=== PATIENT | male | born 1955 | race African-American/Black ===

== ENCOUNTER 2017-12-03 04:20 | Inpatient (IN) | payer OTHER ==
[2017-12-03] MEDS: IPRATROPIUM (NEB) 0.5 MG/2.5 ML AMP INH (05:07)
[2017-12-03] MEDS: ALBUTEROL 0.5% (NEB) 2.5 MG/0.5 ML AMP INH (05:07)
[2017-12-03 05:13] LABS: ADD MAN DIFF? NO; BASOPHILS % 0.2 % (0.0-2.0); EOSINOPHILS # 0.2 10^3/ul (0.0-0.5); EOSINOPHILS % 4.9 % (0.0-7.0); HEMATOCRIT 42.8 % (42.0-52.0); HEMOGLOBIN 14.1 g/dl (14.0-18.0); LYMPHOCYTES # 1.6 10^3/ul (0.8-2.9); LYMPHOCYTES % 32.5 % (15.0-51.0); MEAN CORPUSCULAR HGB CONC 32.9 g/dl (32.0-37.0); MEAN CORPUSCULAR VOLUME 87.9 fl (82.0-101.0); MEAN PLATELET VOLUME 10.6 fl (7.4-10.4); MONOCYTE # 0.7 10^3/ul (0.3-0.9); MONOCYTES % 13.4 % (0.0-11.0); NEUTROPHIL # 2.4 10^3/ul (1.6-7.5); NEUTROPHILS % 48.6 % (39.0-77.0); PLATELET COUNT 210 10^3/UL (140-415); RED BLOOD COUNT 4.87 10^6/ul (4.70-6.10)
[2017-12-03 05:13] LABS: WHITE BLOOD COUNT 4.9 10^3/ul (4.8-10.8)
[2017-12-03] MEDS: METHYLPREDNISOLONE 125 MG INJ IV (05:39)
[2017-12-03] MEDS: MAGNESIUM SULFATE 2 GM/50 ML 50 ML IVPB (05:39)
[2017-12-03 05:40] LABS: ANION GAP 15 (8-16); BLOOD UREA NITROGEN 25 mg/dl (7-20); CALCIUM 8.9 mg/dl (8.4-10.2); CARBON DIOXIDE 27 mmol/L (21-31); CHLORIDE 100 mmol/L (97-110); CREATININE 2.42 mg/dl (0.61-1.24); GLUCOSE 249 mg/dl (70-220); POTASSIUM 3.2 mmol/L (3.5-5.1); SODIUM 139 mmol/L (135-144)
[2017-12-03 05:45] LABS: LACTIC ACID 2.7 mmol/L (0.5-2.0)
[2017-12-03 05:52] LABS: B-TYPE NATRIURETIC PEPTIDE 562 PG/ML (0-125); TROPONIN-I 0.121 ng/ml (0.00-0.12)
[2017-12-03] MEDS: SOD CHLORIDE 0.9% 500 ML IV (05:56)
[2017-12-03] MEDS ORDERED: ONDANSETRON 4 MG INJ IV ×2 (06:00→11:00)
[2017-12-03] MEDS ORDERED: ACETAMINOPHEN 325 MG TAB PO ×2 (06:00→11:00)
[2017-12-03 06:10] LABS: AADO2 Arterial 496.8 mmHg (7.0-24.0); Allen Test ACCEPTAB; Arterial Base Excess 2.5 mmol/L (-3.0-3); Arterial Blood Gas Oxygen Sat 96.7 mmHG (95.0-98.0); Arterial COHb 2.9 % (0.0-3.0); Arterial Fraction of Oxyhgb 93.7 % (93.0-99.0); Arterial HCO3 29.7 mmol/L (22.0-26.0); Arterial MetHb 0.2 % (0.0-1.5); Arterial Total Hemglobin 14.8 g/dl (12.0-18.0); Arterial pCO2 56.6 mmhg (35-45); Blood Gas IEPAP 15/5; Blood Gas PS 10; MODE MASK - BIPAP; Site Right Radial
[2017-12-03] MEDS: AZITHROMYCIN 500MG/NS (PMX) 250 ML IVPB (06:52)
[2017-12-03] MEDS: ASPIRIN 81 MG TAB PO (06:52)
[2017-12-03] MEDS ORDERED: METOPROLOL 5 MG INJ (10:23)
[2017-12-03] MEDS ORDERED: ASPIRIN (EC) 81 MG TAB PO (10:30)
[2017-12-03 10:47] LABS: HEMOGLOBIN A1C 6.4 % (0-5.9)
[2017-12-03] MEDS: METOPROLOL 5 MG INJ IV ×2 (10:50→12:20)
[2017-12-03] MEDS ORDERED: NITROGLYCERIN (SL) 0.4 MG TAB SL (11:00)
[2017-12-03] MEDS ORDERED: HYDROCODONE/APAP (5/325) TAB PO (11:00)
[2017-12-03] MEDS ORDERED: GLUCAGON 1 MG INJ IM (11:00)
[2017-12-03] MEDS ORDERED: NACL 0.9% 3 ML SYG IV (11:00)
[2017-12-03] MEDS ORDERED: GLUCOSE GEL 15 GRAM TUBE BUCCAL (11:00)
[2017-12-03] MEDS ORDERED: DEXTROSE 50% 50 ML SYRINGE IV ×2 (11:00)
[2017-12-03] MEDS ORDERED: GLUCOSE GEL 15 GRAM TUBE PO ×2 (11:00)
[2017-12-03 11:20] LABS: FREE T4 (FREE THYROXINE) 0.92 ng/dl (0.64-1.79)
[2017-12-03] MEDS: POTASSIUM CHLORIDE (SR) 20 MEQ TAB PO (11:41)
[2017-12-03] MEDS: INSULIN ASPART [NOVOLOG] 3 ML PEN SC ×5 (12:31→20:32)
[2017-12-03] MEDS: AMLODIPINE 10 MG TAB PO (12:38)
[2017-12-03 12:40] LABS: CREATINE KINASE 107 IU/L (23-200)
[2017-12-03 12:51] LABS: CK INDEX 1.8; TROPONIN-I 0.083 ng/ml (0.00-0.12)
[2017-12-03 12:52] LABS: CK-MB 1.88 ng/ml (0.0-2.4)
[2017-12-03] MEDS ORDERED: MAGNESIUM SULFATE 3 GM in DEXTROSE 5% 100 ML IVPB (13:00)
[2017-12-03 13:09] LABS: LACTIC ACID 3.7 mmol/L (0.5-2.0)
[2017-12-03] MEDS: LEVALBUTEROL (NEB) 0.63 MG/3 ML AMP HHN ×2 (13:51→20:18)
[2017-12-03] MEDS: HEPARIN 5,000 UNIT/0.5 ML VIAL SC ×2 (14:00→22:08)
[2017-12-03 14:56] LABS: ANION GAP 16 (8-16); BLOOD UREA NITROGEN 21 mg/dl (7-20); CALCIUM 8.6 mg/dl (8.4-10.2); CARBON DIOXIDE 28 mmol/L (21-31); CHLORIDE 101 mmol/L (97-110); CREATININE 1.73 mg/dl (0.61-1.24); GLUCOSE 243 mg/dl (70-220); POTASSIUM 3.8 mmol/L (3.5-5.1); SODIUM 141 mmol/L (135-144)
[2017-12-03 15:13] LABS: LACTIC ACID 2.4 mmol/L (0.5-2.0)
[2017-12-03 15:36] LABS: BARBITURATES Negative (NEGATIVE)
[2017-12-03 15:39] LABS: AMPHETAMINE/METHAMPHETAMINE Negative (NEGATIVE); BENZODIAZEPINES Negative (NEGATIVE); CANNABINOIDS Negative (NEGATIVE); COCAINE Positive (NEGATIVE); OPIATES Negative (NEGATIVE)
[2017-12-03] MEDS: AMIODARONE 150MG/D5W BOLUS 100 ML IV (16:27)
[2017-12-03 16:33] LABS: SODIUM,URINE RANDOM 39 mmol/L (30-90)
[2017-12-03 16:35] LABS: CREATININE,URINE RANDOM 119.52 mg/dl (20-370)
[2017-12-03] MEDS: AMIODARONE 900 MG in DEXTROSE 5% 482 ML IV ×2 (16:35→22:11)
[2017-12-03 16:47] LABS: PROTEIN/CREAT RATIO 2.16 RATIO
[2017-12-03 19:45] LABS: CREATINE KINASE 104 IU/L (23-200)
[2017-12-03 19:58] LABS: CK INDEX 2.3; TROPONIN-I 0.081 ng/ml (0.00-0.12)
[2017-12-03 19:59] LABS: CK-MB 2.43 ng/ml (0.0-2.4)
[2017-12-03] MEDS ORDERED: hydrALAzine 20 MG INJ (20:21)
[2017-12-03] MEDS: hydrALAzine 20 MG INJ IV (20:29)
[2017-12-03] MEDS: ATORVASTATIN 40 MG TAB PO (20:30)
[2017-12-04] MEDS: ACCU-CHEK XX (01:28)
[2017-12-04] MEDS: LEVALBUTEROL (NEB) 0.63 MG/3 ML AMP HHN ×4 (01:29→19:41)
[2017-12-04] MEDS: hydrALAzine 20 MG INJ IV ×2 (04:53→19:45)
[2017-12-04] MEDS: HEPARIN 5,000 UNIT/0.5 ML VIAL SC ×3 (05:08→21:12)
[2017-12-04 06:49] LABS: ADD MAN DIFF? NO
[2017-12-04 06:53] LABS: BASOPHILS % 0.3 % (0.0-2.0); EOSINOPHILS # 0.2 10^3/ul (0.0-0.5); EOSINOPHILS % 2.2 % (0.0-7.0); HEMATOCRIT 42.3 % (42.0-52.0); HEMOGLOBIN 14.2 g/dl (14.0-18.0); LYMPHOCYTES % 29.8 % (15.0-51.0); MEAN CORPUSCULAR HEMOGLOBIN 29.5 pg (29.0-33.0); MEAN CORPUSCULAR HGB CONC 33.6 g/dl (32.0-37.0); MEAN CORPUSCULAR VOLUME 87.8 fl (82.0-101.0); MEAN PLATELET VOLUME 10.1 fl (7.4-10.4); MONOCYTE # 0.8 10^3/ul (0.3-0.9); MONOCYTES % 12.3 % (0.0-11.0); NEUTROPHIL # 3.7 10^3/ul (1.6-7.5); NEUTROPHILS % 54.8 % (39.0-77.0); PLATELET COUNT 197 10^3/UL (140-415); RED BLOOD COUNT 4.82 10^6/ul (4.70-6.10); RED CELL DISTRIBUTION WIDTH 13.9 % (11.5-14.5)
[2017-12-04 06:53] LABS: WHITE BLOOD COUNT 6.8 10^3/ul (4.8-10.8)
[2017-12-04 07:21] LABS: ALANINE AMINOTRANSFERASE 28 IU/L (13-69); ALBUMIN 3.8 g/dl (3.3-4.9); ALKALINE PHOSPHATASE 105 IU/L (42-121); ANION GAP 13 (8-16); ASPARTATE AMINO TRANSFERASE 27 IU/L (15-46); BLOOD UREA NITROGEN 16 mg/dl (7-20); CARBON DIOXIDE 28 mmol/L (21-31); CHLORIDE 103 mmol/L (97-110); CREATININE 1.19 mg/dl (0.61-1.24); GLUCOSE 130 mg/dl (70-220); POTASSIUM 3.8 mmol/L (3.5-5.1); SODIUM 140 mmol/L (135-144); TOTAL PROTEIN 7.6 g/dl (6.1-8.1)
[2017-12-04 07:23] LABS: MAGNESIUM 1.7 mg/dl (1.7-2.5)
[2017-12-04 07:23] LABS: PHOSPHORUS 2.5 mg/dl (2.5-4.9)
[2017-12-04 07:31] LABS: INR 0.88; PT RATIO 0.9
[2017-12-04 07:32] LABS: PARTIAL THROMBOPLASTIN TIME 27.5 Sec (25.0-35.0)
[2017-12-04] MEDS: INSULIN GLARGINE [LANtus] 3 ML PEN SC (09:00)
[2017-12-04] MEDS: INSULIN ASPART [NOVOLOG] 3 ML PEN SC ×7 (09:00→21:15)
[2017-12-04] MEDS: AMLODIPINE 10 MG TAB PO (09:09)
[2017-12-04] MEDS: ASPIRIN 81 MG TAB PO (09:09)
[2017-12-04 09:57] LABS: CREATINE KINASE 110 IU/L (23-200)
[2017-12-04 09:57] LABS: URIC ACID 6.1 mg/dl (3.1-7.9)
[2017-12-04] MEDS ORDERED: ZOLPIDEM 5 MG TAB PO (11:00)
[2017-12-04] MEDS: METHYLPREDNISOLONE 40 MG INJ IV ×2 (13:09→21:07)
[2017-12-04] MEDS: ATORVASTATIN 40 MG TAB PO (21:06)
[2017-12-05] MEDS: hydrALAzine 20 MG INJ IV ×3 (00:17→16:23)
[2017-12-05] MEDS: LEVALBUTEROL (NEB) 0.63 MG/3 ML AMP HHN ×4 (00:59→19:38)
[2017-12-05] MEDS: ACCU-CHEK XX (02:00)
[2017-12-05] MEDS: METHYLPREDNISOLONE 40 MG INJ IV ×3 (06:16→21:14)
[2017-12-05] MEDS: HEPARIN 5,000 UNIT/0.5 ML VIAL SC ×3 (06:18→21:13)
[2017-12-05] MEDS: INSULIN ASPART [NOVOLOG] 3 ML PEN SC ×7 (08:09→21:00)
[2017-12-05] MEDS: ASPIRIN 81 MG TAB PO (09:08)
[2017-12-05] MEDS: AMLODIPINE 10 MG TAB PO (09:08)
[2017-12-05] MEDS: INSULIN GLARGINE [LANtus] 3 ML PEN SC (10:03)
[2017-12-05 10:32] LABS: CREATINE KINASE 59 IU/L (23-200)
[2017-12-05 10:34] LABS: ALANINE AMINOTRANSFERASE 26 IU/L (13-69); ALBUMIN 3.7 g/dl (3.3-4.9); ALBUMIN/GLOBULIN RATIO 1.05; ALKALINE PHOSPHATASE 100 IU/L (42-121); ANION GAP 14 (8-16); ASPARTATE AMINO TRANSFERASE 23 IU/L (15-46); BLOOD UREA NITROGEN 20 mg/dl (7-20); CALCIUM 9.6 mg/dl (8.4-10.2); CARBON DIOXIDE 29 mmol/L (21-31); CHLORIDE 101 mmol/L (97-110); CREATININE 1.33 mg/dl (0.61-1.24); GLUCOSE 199 mg/dl (70-220); MAGNESIUM 1.7 mg/dl (1.7-2.5); POTASSIUM 4.4 mmol/L (3.5-5.1); SODIUM 140 mmol/L (135-144); TOTAL PROTEIN 7.2 g/dl (6.1-8.1)
[2017-12-05 10:41] LABS: B-TYPE NATRIURETIC PEPTIDE 679 PG/ML (0-125)
[2017-12-05 10:44] LABS: CK INDEX 4.2; CK-MB 2.48 ng/ml (0.0-2.4); TROPONIN-I 0.085 ng/ml (0.00-0.12)
[2017-12-05] MEDS ORDERED: LORAZEPAM 2 MG INJ IV (17:00)
[2017-12-05] MEDS: ATORVASTATIN 40 MG TAB PO (21:05)
[2017-12-05] MEDS: NIFEdipine (XL) 30 MG TAB PO (21:05)
[2017-12-06] MEDS: ACCU-CHEK XX (02:00)
[2017-12-06] MEDS: METHYLPREDNISOLONE 40 MG INJ IV (06:47)
[2017-12-06] MEDS: HEPARIN 5,000 UNIT/0.5 ML VIAL SC (07:00)
[2017-12-06] MEDS: INSULIN ASPART [NOVOLOG] 3 ML PEN SC ×2 (07:55)
[2017-12-06] MEDS: LEVALBUTEROL (NEB) 0.63 MG/3 ML AMP HHN (08:00)
[2017-12-06] MEDS: INSULIN GLARGINE [LANtus] 3 ML PEN SC (08:00)
[2017-12-06] MEDS: NIFEdipine (XL) 30 MG TAB PO (08:31)
[2017-12-06] MEDS: ASPIRIN 81 MG TAB PO (08:31)
== END 2017-12-06 08:48 | disposition left against medical advice (07) | DRG 280 ==
LOC: E/R 04:20 → TEL 12-05 17:40 → MS3 05:46 → TEL 12-04 23:15
PROC: 5A09457 Assistance with Respiratory Ventilation, 24-96 Consecutive Hours, Continuous Positive Airway Pressure (ICD-10-PCS; principal; 2017-12-03)
PROC: 4A033R1 Measurement of Arterial Saturation, Peripheral, Percutaneous Approach (ICD-10-PCS; 2017-12-03)
DX: I21.4 Non-ST elevation (NSTEMI) myocardial infarction (principal); I50.23 Acute on chronic systolic (congestive) heart failure; J96.02 Acute respiratory failure with hypercapnia; J96.01 Acute respiratory failure with hypoxia; E87.2 Acidosis; N17.9 Acute kidney failure, unspecified; J44.1 Chronic obstructive pulmonary disease with (acute) exacerbation; I42.9 Cardiomyopathy, unspecified; I47.1 Supraventricular tachycardia; I13.0 Hypertensive heart and chronic kidney disease with heart failure and stage 1 through stage 4 chronic kidney disease, or unspecified chronic kidney disease; F15.90 Other stimulant use, unspecified, uncomplicated; E66.9 Obesity, unspecified; Z68.32 Body mass index [BMI] 32.0-32.9, adult; R73.03 Prediabetes; F17.210 Nicotine dependence, cigarettes, uncomplicated; E78.5 Hyperlipidemia, unspecified; G47.33 Obstructive sleep apnea (adult) (pediatric); N18.9 Chronic kidney disease, unspecified; F14.10 Cocaine abuse, uncomplicated; Z91.19 Patient's noncompliance with other medical treatment and regimen; Z79.82 Long term (current) use of aspirin
CPT/HCPCS: 36600; 71045; 76775; 80048; 80053; 80307; 81003; 82550; 82553; 82570; 82803; 82962; 83036; 83605; 83735; 83880; 84100; 84300; 84439; 84443; 84484; 84560; 85025; 85610; 85730; 87040; 89190; 93005; 93306; 94640; 94644; 94660; 94664; 96374; 96375; 99285-25

== ENCOUNTER 2018-03-28 03:28 | Inpatient (IN) | payer OTHER ==
[2018-03-28 04:17] LABS: ADD MAN DIFF? NO
[2018-03-28 04:22] LABS: WHITE BLOOD COUNT 7.3 10^3/ul (4.8-10.8)
[2018-03-28 04:22] LABS: BASOPHILS % 0.1 % (0.0-2.0); EOSINOPHILS # 0.3 10^3/ul (0.0-0.5); EOSINOPHILS % 3.6 % (0.0-7.0); HEMATOCRIT 41.5 % (42.0-52.0); HEMOGLOBIN 13.4 g/dl (14.0-18.0); LYMPHOCYTES # 1.5 10^3/ul (0.8-2.9); LYMPHOCYTES % 20.1 % (15.0-51.0); MEAN CORPUSCULAR HGB CONC 32.3 g/dl (32.0-37.0); MEAN CORPUSCULAR VOLUME 92.8 fl (82.0-101.0); MEAN PLATELET VOLUME 10.3 fl (7.4-10.4); MONOCYTE # 0.9 10^3/ul (0.3-0.9); MONOCYTES % 12.5 % (0.0-11.0); NEUTROPHIL # 4.6 10^3/ul (1.6-7.5); NEUTROPHILS % 63.2 % (39.0-77.0); PLATELET COUNT 219 10^3/UL (140-415); RED BLOOD COUNT 4.47 10^6/ul (4.70-6.10); RED CELL DISTRIBUTION WIDTH 14.1 % (11.5-14.5)
[2018-03-28 04:36] LABS: ALANINE AMINOTRANSFERASE 23 IU/L (13-69); ALBUMIN 3.5 g/dl (3.3-4.9); ALBUMIN/GLOBULIN RATIO 0.97; ALKALINE PHOSPHATASE 94 IU/L (42-121); ANION GAP 12 (8-16); ASPARTATE AMINO TRANSFERASE 20 IU/L (15-46); BILIRUBIN,INDIRECT 0.5 mg/dl (0-1.1); BILIRUBIN,TOTAL 0.5 mg/dl (0.2-1.3); BLOOD UREA NITROGEN 16 mg/dl (7-20); CALCIUM 8.9 mg/dl (8.4-10.2); CARBON DIOXIDE 30 mmol/L (21-31); CHLORIDE 105 mmol/L (97-110); CREATININE 1.47 mg/dl (0.61-1.24); GLUCOSE 112 mg/dl (70-220); POTASSIUM 3.9 mmol/L (3.5-5.1); SODIUM 143 mmol/L (135-144); TOTAL PROTEIN 7.1 g/dl (6.1-8.1)
[2018-03-28 04:39] LABS: INR 0.93; PROTIME 12.5 Sec (11.9-14.9)
[2018-03-28 04:47] LABS: B-TYPE NATRIURETIC PEPTIDE 2110 PG/ML (0-125)
[2018-03-28 04:52] LABS: TROPONIN-I 0.142 ng/ml (0.00-0.12)
[2018-03-28] MEDS: FUROSEMIDE 40 MG INJ IV (05:00)
[2018-03-28] MEDS ORDERED: NACL 0.9% 3 ML SYG IV (05:30)
[2018-03-28] MEDS ORDERED: ONDANSETRON 4 MG INJ IV (05:30)
[2018-03-28] MEDS ORDERED: ACETAMINOPHEN 325 MG TAB PO (05:30)
[2018-03-28] MEDS ORDERED: morphine 2 MG INJ IV (05:30)
[2018-03-28] MEDS ORDERED: ALBUTEROL/IPRATROPIUM (NEB) 3 ML AMP HHN (05:30)
[2018-03-28] MEDS: AMLODIPINE 10 MG TAB PO (09:00)
[2018-03-28] MEDS: ASPIRIN (EC) 81 MG TAB PO (09:00)
[2018-03-28] MEDS: FUROSEMIDE 20 MG INJ IV ×2 (09:00→18:44)
[2018-03-28] MEDS: HEPARIN 5,000 UNIT/0.5 ML VIAL SC ×2 (09:00→20:31)
[2018-03-28] MEDS ORDERED: FUROSEMIDE 40 MG TAB PO (09:00)
[2018-03-28 09:43] LABS: CREATINE KINASE 89 IU/L (23-200)
[2018-03-28 09:55] LABS: CK INDEX 3.4; TROPONIN-I 0.127 ng/ml (0.00-0.12)
[2018-03-28 12:18] LABS: AADO2 Arterial 53.8 mmHg (7.0-24.0); Allen Test ACCEPTAB; Arterial Base Excess 0.8 mmol/L (-3.0-3); Arterial Blood Gas Oxygen Sat 97.1 mmHG (95.0-98.0); Arterial COHb 3.8 % (0.0-3.0); Arterial Fraction of Oxyhgb 93.1 % (93.0-99.0); Arterial HCO3 27.1 mmol/L (22.0-26.0); Arterial MetHb 0.3 % (0.0-1.5); Arterial Total Hemglobin 14.8 g/dl (12.0-18.0); Arterial pCO2 49.6 mmhg (35-45); Blood Gas IEPAP 15/5; MODE MASK - BIPAP; Site Left Radial
[2018-03-28 12:51] LABS: CREATINE KINASE 84 IU/L (23-200)
[2018-03-28 13:01] LABS: CK INDEX 3.2
[2018-03-28] MEDS: ALBUTEROL/IPRATROPIUM (NEB) 3 ML AMP HHN ×2 (14:30→20:10)
[2018-03-28] MEDS: LEVOFLOXACIN 250MG/D5W (PMX) 50 ML IVPB (17:00)
[2018-03-28] MEDS: hydrALAzine 20 MG INJ IV (20:23)
[2018-03-28] MEDS: ATORVASTATIN 40 MG TAB PO (20:23)
[2018-03-29 01:16] LABS: ADD UMIC YES; UR ASCORBIC ACID NEGATIVE (NEGATIVE); UR BILIRUBIN (Dip) NEGATIVE (NEGATIVE); UR BLOOD (Dip) NEGATIVE (NEGATIVE); UR CLARITY CLEAR (CLEAR); UR COLOR YELLOW (YELLOW); UR GLUCOSE (Dip) NEGATIVE (NEGATIVE); UR KETONES (Dip) NEGATIVE (NEGATIVE); UR LEUKOCYTE ESTERASE (Dip) NEGATIVE Leu/ul (NEGATIVE); UR NITRITE (Dip) NEGATIVE (NEGATIVE); UR RBC 0 /HPF (0-5); UR TOTAL PROTEIN (Dip) 3+ mg/dl (NEGATIVE); UR UROBILINOGEN (Dip) 2+ mg/dL (NEGATIVE); UR WBC 1 /HPF (0-5)
[2018-03-29] MEDS: hydrALAzine 20 MG INJ IV (01:18)
[2018-03-29] MEDS: ALBUTEROL/IPRATROPIUM (NEB) 3 ML AMP HHN ×4 (01:32→20:15)
[2018-03-29 03:01] LABS: SODIUM,URINE RANDOM 142 mmol/L (30-90)
[2018-03-29] MEDS: FUROSEMIDE 20 MG INJ IV (05:59)
[2018-03-29 08:19] LABS: ADD MAN DIFF? NO
[2018-03-29 08:20] LABS: BASOPHILS % 0.4 % (0.0-2.0); EOSINOPHILS # 0.2 10^3/ul (0.0-0.5); EOSINOPHILS % 3.7 % (0.0-7.0); HEMATOCRIT 48.2 % (42.0-52.0); HEMOGLOBIN 15.5 g/dl (14.0-18.0); LYMPHOCYTES # 1.2 10^3/ul (0.8-2.9); LYMPHOCYTES % 22.7 % (15.0-51.0); MEAN CORPUSCULAR HEMOGLOBIN 29.5 pg (29.0-33.0); MEAN CORPUSCULAR HGB CONC 32.2 g/dl (32.0-37.0); MEAN CORPUSCULAR VOLUME 91.8 fl (82.0-101.0); MEAN PLATELET VOLUME 10.4 fl (7.4-10.4); MONOCYTE # 0.7 10^3/ul (0.3-0.9); MONOCYTES % 13.2 % (0.0-11.0); NEUTROPHILS % 59.6 % (39.0-77.0); PLATELET COUNT 278 10^3/UL (140-415); RED BLOOD COUNT 5.25 10^6/ul (4.70-6.10); RED CELL DISTRIBUTION WIDTH 14.1 % (11.5-14.5)
[2018-03-29 08:20] LABS: WHITE BLOOD COUNT 5.1 10^3/ul (4.8-10.8)
[2018-03-29 08:48] LABS: ALANINE AMINOTRANSFERASE 20 IU/L (13-69); ALBUMIN 3.8 g/dl (3.3-4.9); ALBUMIN/GLOBULIN RATIO 1.05; ALKALINE PHOSPHATASE 107 IU/L (42-121); ANION GAP 16 (8-16); ASPARTATE AMINO TRANSFERASE 19 IU/L (15-46); BILIRUBIN,INDIRECT 0.6 mg/dl (0-1.1); BILIRUBIN,TOTAL 0.6 mg/dl (0.2-1.3); BLOOD UREA NITROGEN 22 mg/dl (7-20); CALCIUM 9.3 mg/dl (8.4-10.2); CARBON DIOXIDE 33 mmol/L (21-31); CHLORIDE 101 mmol/L (97-110); CHOL/HDL RATIO 2.8 RATIO; CHOLESTEROL 147 mg/dl (100-200); CREATININE 1.63 mg/dl (0.61-1.24); GLUCOSE 121 mg/dl (70-220); HDL CHOLESTEROL 51 mg/dl (30-78); LDL CHOLESTEROL,CALCULATED 64 mg/dl; MAGNESIUM 1.9 mg/dl (1.7-2.5); POTASSIUM 4.2 mmol/L (3.5-5.1); SODIUM 146 mmol/L (135-144); TOTAL PROTEIN 7.4 g/dl (6.1-8.1); TRIGLYCERIDES 162 mg/dl (0-149)
[2018-03-29] MEDS: ASPIRIN (EC) 81 MG TAB PO (08:48)
[2018-03-29] MEDS: AMLODIPINE 10 MG TAB PO (08:48)
[2018-03-29 08:53] LABS: CREATINE KINASE 83 IU/L (23-200)
[2018-03-29] MEDS: HEPARIN 5,000 UNIT/0.5 ML VIAL SC ×2 (08:53→20:45)
[2018-03-29 08:59] LABS: CK INDEX 3.6
[2018-03-29 09:00] LABS: CK-MB 2.95 ng/ml (0.0-2.4); TROPONIN-I 0.157 ng/ml (0.00-0.12)
[2018-03-29 09:18] LABS: PHOSPHORUS 4.2 mg/dl (2.5-4.9)
[2018-03-29 09:18] LABS: URIC ACID 7.3 mg/dl (3.1-7.9)
[2018-03-29 09:57] LABS: HEMOGLOBIN A1C 5.5 % (0-5.9)
[2018-03-29] MEDS: LEVOFLOXACIN 250MG/D5W (PMX) 50 ML IVPB (15:16)
[2018-03-29] MEDS: LISINOPRIL 20 MG TAB PO (20:40)
[2018-03-29] MEDS: ATORVASTATIN 40 MG TAB PO (20:41)
[2018-03-30] MEDS: hydrALAzine 20 MG INJ IV (00:32)
[2018-03-30] MEDS: ALBUTEROL/IPRATROPIUM (NEB) 3 ML AMP HHN (01:50)
== END 2018-03-30 06:17 | disposition left against medical advice (07) | DRG 280 ==
LOC: E/R 03:28 → MS4 04:30
PROC: 5A09357 Assistance with Respiratory Ventilation, Less than 24 Consecutive Hours, Continuous Positive Airway Pressure (ICD-10-PCS; principal; 2018-03-28)
DX: I13.0 Hypertensive heart and chronic kidney disease with heart failure and stage 1 through stage 4 chronic kidney disease, or unspecified chronic kidney disease (principal); I50.43 Acute on chronic combined systolic (congestive) and diastolic (congestive) heart failure; I21.A1 Myocardial infarction type 2; J96.01 Acute respiratory failure with hypoxia; G93.40 Encephalopathy, unspecified; J44.1 Chronic obstructive pulmonary disease with (acute) exacerbation; I47.1 Supraventricular tachycardia; N18.9 Chronic kidney disease, unspecified; G47.33 Obstructive sleep apnea (adult) (pediatric); F17.200 Nicotine dependence, unspecified, uncomplicated; F14.10 Cocaine abuse, uncomplicated; I25.10 Atherosclerotic heart disease of native coronary artery without angina pectoris; E78.5 Hyperlipidemia, unspecified; Z91.14 Patient's other noncompliance with medication regimen
CPT/HCPCS: 36415; 36600; 70450; 71045; 80053; 80061; 81001; 82550; 82553; 82803; 83036; 83735; 83880; 84100; 84300; 84443; 84484; 84560; 85025; 85610; 85730; 89190; 93005; 93306; 94640; 94660; 94664; 96374; 99285-25

== ENCOUNTER 2018-04-02 19:20 | Inpatient (IN) | payer OTHER ==
[2018-04-02] MEDS ORDERED: PROPOFOL 100 ML (19:36)
[2018-04-02] MEDS ORDERED: EPINEPHrine 0.1 MG/ML SYG (19:48)
[2018-04-02 20:08] LABS: ADD MAN DIFF? NO
[2018-04-02] MEDS: ASPIRIN 300 MG SUPP PR (20:08)
[2018-04-02] MEDS: FUROSEMIDE 40 MG INJ IV (20:08)
[2018-04-02] MEDS ORDERED: NITROPRUSSIDE 50 MG in DEXTROSE 5% 248 ML IV (20:09)
[2018-04-02] MEDS ORDERED: NITROGLYCERIN 50 MG/D5W (PMX) 250 ML (20:10)
[2018-04-02 20:11] LABS: ABNORMAL IP MESSAGE 1; BASOPHILS % 0.3 % (0.0-2.0); EOSINOPHILS # 0.4 10^3/ul (0.0-0.5); EOSINOPHILS % 3.6 % (0.0-7.0); HEMATOCRIT 51.8 % (42.0-52.0); HEMOGLOBIN 16.1 g/dl (14.0-18.0); LYMPHOCYTES # 4.2 10^3/ul (0.8-2.9); LYMPHOCYTES % 39.7 % (15.0-51.0); MEAN CORPUSCULAR HEMOGLOBIN 30.3 pg (29.0-33.0); MEAN CORPUSCULAR HGB CONC 31.1 g/dl (32.0-37.0); MEAN CORPUSCULAR VOLUME 97.4 fl (82.0-101.0); MEAN PLATELET VOLUME 11.4 fl (7.4-10.4); MONOCYTE # 1.5 10^3/ul (0.3-0.9); MONOCYTES % 14.2 % (0.0-11.0); NEUTROPHIL # 4.5 10^3/ul (1.6-7.5); NEUTROPHILS % 41.8 % (39.0-77.0); PLATELET COUNT 273 10^3/UL (140-415); POSITIVE DIFF @See below; RED BLOOD COUNT 5.32 10^6/ul (4.70-6.10); RED CELL DISTRIBUTION WIDTH 14.4 % (11.5-14.5)
[2018-04-02 20:11] LABS: WHITE BLOOD COUNT 10.7 10^3/ul (4.8-10.8)
[2018-04-02] MEDS: PROPOFOL 100 ML IV (20:20)
[2018-04-02] MEDS: NITROGLYCERIN 50 MG/D5W (PMX) 250 ML IV (20:25)
[2018-04-02 20:31] LABS: ANION GAP 17 (8-16); BLOOD UREA NITROGEN 24 mg/dl (7-20); CALCIUM 8.5 mg/dl (8.4-10.2); CARBON DIOXIDE 30 mmol/L (21-31); CHLORIDE 106 mmol/L (97-110); CREATININE 1.84 mg/dl (0.61-1.24); GLUCOSE 132 mg/dl (70-220); POTASSIUM 4.6 mmol/L (3.5-5.1); SODIUM 148 mmol/L (135-144)
[2018-04-02 20:52] LABS: TROPONIN-I 0.148 ng/ml (0.00-0.12)
[2018-04-02 21:08] LABS: Allen Test ACCEPTAB; Arterial Base Excess -0.4 mmol/L (-3.0-3); Arterial Blood Gas Oxygen Sat 94.3 mmHG (95.0-98.0); Arterial COHb 3.2 % (0.0-3.0); Arterial Fraction of Oxyhgb 90.9 % (93.0-99.0); Arterial HCO3 29.7 mmol/L (22.0-26.0); Arterial MetHb 0.4 % (0.0-1.5); Arterial pCO2 75.2 mmhg (35-45); MODE VENT - AC; Site Right Radial
[2018-04-02] MEDS ORDERED: ALBUTEROL/IPRATROPIUM (NEB) 3 ML AMP NEB (22:00)
[2018-04-02] MEDS: HEPARIN 5,000 UNIT/0.5 ML VIAL SC (22:00)
[2018-04-02] MEDS: ALBUMIN HUMAN 25% 100 ML IV ×2 (22:00→23:00)
[2018-04-02] MEDS ORDERED: BISACODYL (EC) 5 MG TAB PO (22:00)
[2018-04-02] MEDS ORDERED: DOCUSATE SODIUM 100 MG CAP PO (22:00)
[2018-04-02 22:47] LABS: LACTIC ACID 1.6 mmol/L (0.5-2.0)
[2018-04-02 22:49] LABS: ALANINE AMINOTRANSFERASE 64 IU/L (13-69); ALBUMIN 3.5 g/dl (3.3-4.9); ALBUMIN/GLOBULIN RATIO 1.09; ALKALINE PHOSPHATASE 86 IU/L (42-121); ANION GAP 16 (8-16); ASPARTATE AMINO TRANSFERASE 94 IU/L (15-46); BILIRUBIN,INDIRECT 0.5 mg/dl (0-1.1); BILIRUBIN,TOTAL 0.5 mg/dl (0.2-1.3); BLOOD UREA NITROGEN 29 mg/dl (7-20); CALCIUM 8.4 mg/dl (8.4-10.2); CARBON DIOXIDE 27 mmol/L (21-31); CHLORIDE 106 mmol/L (97-110); CREATINE KINASE 418 IU/L (23-200); CREATININE 1.92 mg/dl (0.61-1.24); GLUCOSE 157 mg/dl (70-220); POTASSIUM 5.9 mmol/L (3.5-5.1); SODIUM 143 mmol/L (135-144); TOTAL PROTEIN 6.7 g/dl (6.1-8.1)
[2018-04-02 22:56] LABS: ETHANOL < 10.0 mg/dl
[2018-04-02 23:02] LABS: CK INDEX 1.1
[2018-04-02 23:05] LABS: CK-MB 4.76 ng/ml (0.0-2.4); TROPONIN-I 0.422 ng/ml (0.00-0.12)
[2018-04-02 23:51] LABS: ADD MAN DIFF? NO
[2018-04-02 23:53] LABS: WHITE BLOOD COUNT 8.7 10^3/ul (4.8-10.8)
[2018-04-02 23:53] LABS: BASOPHILS % 0.2 % (0.0-2.0); EOSINOPHILS # 0.1 10^3/ul (0.0-0.5); EOSINOPHILS % 0.7 % (0.0-7.0); HEMATOCRIT 44.5 % (42.0-52.0); HEMOGLOBIN 13.9 g/dl (14.0-18.0); LYMPHOCYTES # 0.9 10^3/ul (0.8-2.9); LYMPHOCYTES % 10.5 % (15.0-51.0); MEAN CORPUSCULAR HEMOGLOBIN 29.7 pg (29.0-33.0); MEAN CORPUSCULAR HGB CONC 31.2 g/dl (32.0-37.0); MEAN CORPUSCULAR VOLUME 95.1 fl (82.0-101.0); MEAN PLATELET VOLUME 10.3 fl (7.4-10.4); MONOCYTE # 1.1 10^3/ul (0.3-0.9); MONOCYTES % 12.7 % (0.0-11.0); NEUTROPHIL # 6.5 10^3/ul (1.6-7.5); NEUTROPHILS % 74.9 % (39.0-77.0); PLATELET COUNT 261 10^3/UL (140-415); RED BLOOD COUNT 4.68 10^6/ul (4.70-6.10); RED CELL DISTRIBUTION WIDTH 14.1 % (11.5-14.5)
[2018-04-03 00:11] LABS: AADO2 Arterial 387.6 mmHg (7.0-24.0); Allen Test ACCEPTAB; Arterial Base Excess 1.8 mmol/L (-3.0-3); Arterial Blood Gas Oxygen Sat 99.5 mmHG (95.0-98.0); Arterial Fraction of Oxyhgb 97.2 % (93.0-99.0); Arterial HCO3 27.2 mmol/L (22.0-26.0); Arterial MetHb 0.3 % (0.0-1.5); Arterial Total Hemglobin 14.8 g/dl (12.0-18.0); Arterial pCO2 45.3 mmhg (35-45); MODE VENT - AC; Site Right Radial
[2018-04-03] MEDS: VECURONIUM 100 MG in DEXTROSE 5% 100 ML IV (00:29)
[2018-04-03] MEDS: FENTAnyl (DRIP) 1000 mcg/100mL 100 ML IV ×3 (00:30→18:30)
[2018-04-03] MEDS: MIDAZOLAM (DRIP) 50 mg/50 mL 50 ML IV ×4 (02:42→21:50)
[2018-04-03] MEDS ORDERED: hydrALAzine 20 MG INJ (02:50)
[2018-04-03] MEDS: PROPOFOL 100 ML IV ×3 (02:54→14:47)
[2018-04-03] MEDS: hydrALAzine 20 MG INJ IV (03:05)
[2018-04-03] MEDS: FUROSEMIDE 40 MG INJ IV ×2 (03:19→17:21)
[2018-04-03 03:58] LABS: ADD UMIC YES; UR ASCORBIC ACID NEGATIVE (NEGATIVE); UR BACTERIA MODERATE /HPF (NONE SEEN); UR BILIRUBIN (Dip) NEGATIVE (NEGATIVE); UR BLOOD (Dip) NEGATIVE (NEGATIVE); UR CLARITY SLIGHTLY CLOUDY (CLEAR); UR COLOR YELLOW (YELLOW); UR GLUCOSE (Dip) 1+ mg/dL (NEGATIVE); UR KETONES (Dip) NEGATIVE (NEGATIVE); UR LEUKOCYTE ESTERASE (Dip) NEGATIVE Leu/ul (NEGATIVE); UR NITRITE (Dip) NEGATIVE (NEGATIVE); UR RBC 10 /HPF (0-5); UR SPECIFIC GRAVITY (Dip) 1.014 (1.003-1.030); UR TOTAL PROTEIN (Dip) 3+ mg/dl (NEGATIVE); UR UROBILINOGEN (Dip) NEGATIVE (NEGATIVE); UR WBC 20 /HPF (0-5)
[2018-04-03 04:23] LABS: AMPHETAMINE/METHAMPHETAMINE Negative (NEGATIVE); BARBITURATES Negative (NEGATIVE); BENZODIAZEPINES Negative (NEGATIVE); CANNABINOIDS Negative (NEGATIVE); COCAINE Positive (NEGATIVE); OPIATES Negative (NEGATIVE)
[2018-04-03] MEDS: PANTOPRAZOLE 40 MG INJ IV ×2 (05:28→17:21)
[2018-04-03 05:49] LABS: AADO2 Arterial 257.7 mmHg (7.0-24.0); Allen Test ACCEPTAB; Arterial Base Excess 1.8 mmol/L (-3.0-3); Arterial Blood Gas Oxygen Sat 97.3 mmHG (95.0-98.0); Arterial COHb 0.9 % (0.0-3.0); Arterial Fraction of Oxyhgb 96.2 % (93.0-99.0); Arterial HCO3 24.8 mmol/L (22.0-26.0); Arterial MetHb 0.2 % (0.0-1.5); Arterial pCO2 28.9 mmhg (35-45); MODE VENT - AC; Site Right Radial; Temperature 33.2 C
[2018-04-03] MEDS: HEPARIN 5,000 UNIT/0.5 ML VIAL SC (06:00)
[2018-04-03 06:21] LABS: ADD MAN DIFF? NO
[2018-04-03 06:37] LABS: BASOPHILS % 0.2 % (0.0-2.0); EOSINOPHILS % 0.2 % (0.0-7.0); HEMATOCRIT 46.1 % (42.0-52.0); HEMOGLOBIN 14.9 g/dl (14.0-18.0); LYMPHOCYTES # 0.8 10^3/ul (0.8-2.9); LYMPHOCYTES % 6.9 % (15.0-51.0); MEAN CORPUSCULAR HEMOGLOBIN 29.6 pg (29.0-33.0); MEAN CORPUSCULAR HGB CONC 32.3 g/dl (32.0-37.0); MEAN CORPUSCULAR VOLUME 91.5 fl (82.0-101.0); MEAN PLATELET VOLUME 10.8 fl (7.4-10.4); MONOCYTE # 0.8 10^3/ul (0.3-0.9); MONOCYTES % 7.1 % (0.0-11.0); NEUTROPHIL # 9.4 10^3/ul (1.6-7.5); NEUTROPHILS % 84.9 % (39.0-77.0); PLATELET COUNT 231 10^3/UL (140-415); RED BLOOD COUNT 5.04 10^6/ul (4.70-6.10)
[2018-04-03 06:37] LABS: WHITE BLOOD COUNT 11.1 10^3/ul (4.8-10.8)
[2018-04-03 06:51] LABS: LACTIC ACID 1.3 mmol/L (0.5-2.0)
[2018-04-03 06:53] LABS: INR 0.98; PROTIME 13.1 Sec (11.9-14.9)
[2018-04-03 06:54] LABS: ALANINE AMINOTRANSFERASE 66 IU/L (13-69); ALBUMIN 3.4 g/dl (3.3-4.9); ALKALINE PHOSPHATASE 105 IU/L (42-121); AMYLASE 135 U/L (11-123); ANION GAP 12 (8-16); ASPARTATE AMINO TRANSFERASE 89 IU/L (15-46); BILIRUBIN,INDIRECT 0.9 mg/dl (0-1.1); BILIRUBIN,TOTAL 0.9 mg/dl (0.2-1.3); BLOOD UREA NITROGEN 30 mg/dl (7-20); CARBON DIOXIDE 29 mmol/L (21-31); CHLORIDE 110 mmol/L (97-110); CREATINE KINASE 385 IU/L (23-200); CREATININE 1.58 mg/dl (0.61-1.24); GLUCOSE 166 mg/dl (70-220); LIPASE 132 U/L (23-300); MAGNESIUM 1.9 mg/dl (1.7-2.5); POTASSIUM 3.8 mmol/L (3.5-5.1); SODIUM 147 mmol/L (135-144); TOTAL PROTEIN 6.8 g/dl (6.1-8.1)
[2018-04-03 06:58] LABS: D-DIMER 3797.01 ng/ml (<460)
[2018-04-03 07:04] LABS: CK INDEX 2.1
[2018-04-03 07:07] LABS: CK-MB 8.02 ng/ml (0.0-2.4); TROPONIN-I 0.872 ng/ml (0.00-0.12)
[2018-04-03 07:08] LABS: CK-MB 6.62 ng/ml (0.0-2.4); TROPONIN-I 0.794 ng/ml (0.00-0.12)
[2018-04-03 07:16] LABS: CK INDEX 1.8; CREATINE KINASE 364 IU/L (23-200)
[2018-04-03 07:40] LABS: ADD UMIC YES; UR AMORPHOUS CRYSTAL FEW /HPF (NONE SEEN); UR ASCORBIC ACID NEGATIVE (NEGATIVE); UR BILIRUBIN (Dip) NEGATIVE (NEGATIVE); UR BLOOD (Dip) 2+ mg/dL (NEGATIVE); UR CELLULAR CAST FEW /HPF (NONE SEEN); UR CLARITY CLOUDY (CLEAR); UR COLOR RED (YELLOW); UR GLUCOSE (Dip) NEGATIVE (NEGATIVE); UR GRANULAR CAST FEW /HPF (NONE SEEN); UR HYALINE CAST FEW /HPF (NONE SEEN); UR KETONES (Dip) NEGATIVE (NEGATIVE); UR LEUKOCYTE ESTERASE (Dip) NEGATIVE Leu/ul (NEGATIVE); UR MUCUS FEW /HPF (NONE SEEN); UR NITRITE (Dip) NEGATIVE (NEGATIVE); UR RBC 4 /HPF (0-5); UR SQUAMOUS EPITHELIAL CELL FEW /HPF (FEW); UR TOTAL PROTEIN (Dip) 2+ mg/dl (NEGATIVE); UR UROBILINOGEN (Dip) NEGATIVE (NEGATIVE); UR WBC 7 /HPF (0-5)
[2018-04-03] MEDS: ARTIFICIAL TEARS 15 ML OPH BOTH EYES ×3 (11:39→23:42)
[2018-04-03] MEDS: OCULAR LUBRICANT 3.5 GM OPH OINT BOTH EYES ×3 (11:39→23:42)
[2018-04-03 15:04] LABS: ADD MAN DIFF? NO
[2018-04-03 15:10] LABS: BASOPHILS % 0.2 % (0.0-2.0); EOSINOPHILS % 0.2 % (0.0-7.0); HEMATOCRIT 49.9 % (42.0-52.0); HEMOGLOBIN 15.9 g/dl (14.0-18.0); LYMPHOCYTES # 0.8 10^3/ul (0.8-2.9); LYMPHOCYTES % 6.2 % (15.0-51.0); MEAN CORPUSCULAR HEMOGLOBIN 29.9 pg (29.0-33.0); MEAN CORPUSCULAR HGB CONC 31.9 g/dl (32.0-37.0); MEAN CORPUSCULAR VOLUME 93.8 fl (82.0-101.0); MEAN PLATELET VOLUME 10.7 fl (7.4-10.4); MONOCYTE # 1.2 10^3/ul (0.3-0.9); MONOCYTES % 9.5 % (0.0-11.0); NEUTROPHIL # 10.4 10^3/ul (1.6-7.5); NEUTROPHILS % 83.3 % (39.0-77.0); PLATELET COUNT 207 10^3/UL (140-415); POSITIVE DIFF @See below; RED BLOOD COUNT 5.32 10^6/ul (4.70-6.10); RED CELL DISTRIBUTION WIDTH 14.3 % (11.5-14.5)
[2018-04-03 15:10] LABS: WHITE BLOOD COUNT 12.5 10^3/ul (4.8-10.8)
[2018-04-03 16:00] LABS: BAND NEUTROPHILS #M 1.1 10^3/ul (0.0-0.6); BAND NEUTROPHILS % (M) 9 % (0-4); EOSINOPHILS % (M) 1 % (0-7); GIANT THROMBO% (M) 3 % (0-0); LYMPHOCYTES #M 0.7 10^3/ul (0.8-2.9); LYMPHOCYTES % (M) 6 % (15-51); MONOCYTE #M 1.1 10^3/ul (0.3-0.9); MONOCYTES % (M) 9 % (0-11); PLATELET ESTIMATE NORMAL; POIKILOCYTOSIS 1+ (0-0); SEG NEUT #M 9.5 10^3/ul (1.6-7.5); SEGMENTED NEUTROPHILS (M) % 75 % (39-77)
[2018-04-03 16:12] LABS: ALANINE AMINOTRANSFERASE 68 IU/L (13-69); ALBUMIN 3.6 g/dl (3.3-4.9); ALBUMIN/GLOBULIN RATIO 1.02; ALKALINE PHOSPHATASE 104 IU/L (42-121); ANION GAP 15 (8-16); ASPARTATE AMINO TRANSFERASE 93 IU/L (15-46); BLOOD UREA NITROGEN 28 mg/dl (7-20); CALCIUM 8.5 mg/dl (8.4-10.2); CARBON DIOXIDE 30 mmol/L (21-31); CHLORIDE 105 mmol/L (97-110); CREATININE 1.61 mg/dl (0.61-1.24); GLUCOSE 110 mg/dl (70-220); POTASSIUM 4.1 mmol/L (3.5-5.1); SODIUM 146 mmol/L (135-144); TOTAL PROTEIN 7.1 g/dl (6.1-8.1)
[2018-04-03 16:15] LABS: INR 0.91; PROTIME 12.3 Sec (11.9-14.9)
[2018-04-03] MEDS: LIDOCAINE 1% (MPF) 5 ML VIAL SC (16:25)
[2018-04-03] MEDS: SOD CHLORIDE 0.9% 100 ML (16:40)
[2018-04-03 16:53] LABS: AMYLASE 127 U/L (11-123); CREATINE KINASE 252 IU/L (23-200); LIPASE 51 U/L (23-300); MAGNESIUM 2.1 mg/dl (1.7-2.5)
[2018-04-03 16:53] LABS: PHOSPHORUS 4.4 mg/dl (2.5-4.9)
[2018-04-03 16:58] LABS: D-DIMER 3793.31 ng/ml (<460)
[2018-04-03] MEDS ORDERED: VANCOMYCIN IV PER PHARMACY XX (17:00)
[2018-04-03 17:02] LABS: CK INDEX 2.8
[2018-04-03 17:04] LABS: CK-MB 7.11 ng/ml (0.0-2.4); TROPONIN-I 0.297 ng/ml (0.00-0.12)
[2018-04-03] MEDS: POTASSIUM PHOSPHATE 30 MM in SOD CHLORIDE 0.9% 250 ML IVPB (17:14)
[2018-04-03] MEDS: PIPER-TAZO 3.375 GM IV (PMX) 100 ML IVPB ×2 (17:21→23:41)
[2018-04-03] MEDS: VANCOMYCIN 2 GM in SOD CHLORIDE 0.9% 500 ML IVPB (18:18)
[2018-04-03 20:48] LABS: ADD MAN DIFF? NO
[2018-04-03 20:53] LABS: WHITE BLOOD COUNT 10.5 10^3/ul (4.8-10.8)
[2018-04-03 20:53] LABS: BASOPHILS % 0.2 % (0.0-2.0); EOSINOPHILS # 0.1 10^3/ul (0.0-0.5); EOSINOPHILS % 0.5 % (0.0-7.0); HEMATOCRIT 47.7 % (42.0-52.0); HEMOGLOBIN 15.2 g/dl (14.0-18.0); LYMPHOCYTES # 0.8 10^3/ul (0.8-2.9); LYMPHOCYTES % 7.6 % (15.0-51.0); MEAN CORPUSCULAR HEMOGLOBIN 29.6 pg (29.0-33.0); MEAN CORPUSCULAR HGB CONC 31.9 g/dl (32.0-37.0); MEAN PLATELET VOLUME 10.5 fl (7.4-10.4); MONOCYTE # 0.9 10^3/ul (0.3-0.9); MONOCYTES % 8.5 % (0.0-11.0); NEUTROPHIL # 8.7 10^3/ul (1.6-7.5); NEUTROPHILS % 82.7 % (39.0-77.0); PLATELET COUNT 212 10^3/UL (140-415); RED BLOOD COUNT 5.13 10^6/ul (4.70-6.10); RED CELL DISTRIBUTION WIDTH 14.3 % (11.5-14.5)
[2018-04-03] MEDS: ATORVASTATIN 40 MG TAB PO (21:07)
[2018-04-03 21:16] LABS: LACTIC ACID 1.2 mmol/L (0.5-2.0); PHOSPHORUS 5.5 mg/dl (2.5-4.9)
[2018-04-03 21:16] LABS: AMYLASE 81 U/L (11-123); CREATINE KINASE 195 IU/L (23-200); LIPASE 40 U/L (23-300); MAGNESIUM 1.8 mg/dl (1.7-2.5)
[2018-04-03 21:18] LABS: ALANINE AMINOTRANSFERASE 70 IU/L (13-69); ALBUMIN 3.3 g/dl (3.3-4.9); ALKALINE PHOSPHATASE 103 IU/L (42-121); ANION GAP 11 (8-16); ASPARTATE AMINO TRANSFERASE 70 IU/L (15-46); BILIRUBIN,INDIRECT 1.3 mg/dl (0-1.1); BILIRUBIN,TOTAL 1.3 mg/dl (0.2-1.3); BLOOD UREA NITROGEN 27 mg/dl (7-20); CALCIUM 8.5 mg/dl (8.4-10.2); CARBON DIOXIDE 33 mmol/L (21-31); CHLORIDE 106 mmol/L (97-110); CREATININE 1.58 mg/dl (0.61-1.24); GLUCOSE 122 mg/dl (70-220); POTASSIUM 3.4 mmol/L (3.5-5.1); SODIUM 147 mmol/L (135-144); TOTAL PROTEIN 6.6 g/dl (6.1-8.1)
[2018-04-03 21:27] LABS: CK INDEX 4.4
[2018-04-03 21:28] LABS: CK-MB 8.62 ng/ml (0.0-2.4); TROPONIN-I 0.258 ng/ml (0.00-0.12)
[2018-04-03 21:33] LABS: PROTIME 13.3 Sec (11.9-14.9)
[2018-04-03 21:36] LABS: D-DIMER 3159.89 ng/ml (<460)
[2018-04-04 01:04] LABS: ADD MAN DIFF? NO
[2018-04-04 01:07] LABS: WHITE BLOOD COUNT 10.7 10^3/ul (4.8-10.8)
[2018-04-04 01:07] LABS: BASOPHILS % 0.1 % (0.0-2.0); EOSINOPHILS # 0.1 10^3/ul (0.0-0.5); EOSINOPHILS % 0.6 % (0.0-7.0); HEMATOCRIT 45.5 % (42.0-52.0); HEMOGLOBIN 14.8 g/dl (14.0-18.0); LYMPHOCYTES # 0.7 10^3/ul (0.8-2.9); LYMPHOCYTES % 6.8 % (15.0-51.0); MEAN CORPUSCULAR HEMOGLOBIN 29.9 pg (29.0-33.0); MEAN CORPUSCULAR HGB CONC 32.5 g/dl (32.0-37.0); MEAN CORPUSCULAR VOLUME 91.9 fl (82.0-101.0); MEAN PLATELET VOLUME 10.6 fl (7.4-10.4); MONOCYTE # 0.9 10^3/ul (0.3-0.9); NEUTROPHILS % 83.9 % (39.0-77.0); PLATELET COUNT 186 10^3/UL (140-415); RED BLOOD COUNT 4.95 10^6/ul (4.70-6.10); RED CELL DISTRIBUTION WIDTH 14.4 % (11.5-14.5)
[2018-04-04 01:28] LABS: LACTIC ACID 1.1 mmol/L (0.5-2.0)
[2018-04-04 01:28] LABS: INR 1.03; PROTIME 13.6 Sec (11.9-14.9); PT RATIO 1.1
[2018-04-04 01:29] LABS: PARTIAL THROMBOPLASTIN TIME 31.9 Sec (25.0-35.0)
[2018-04-04 01:34] LABS: D-DIMER 2779.41 ng/ml (<460)
[2018-04-04 01:41] LABS: ALANINE AMINOTRANSFERASE 62 IU/L (13-69); ALBUMIN 3.1 g/dl (3.3-4.9); ALBUMIN/GLOBULIN RATIO 0.91; ALKALINE PHOSPHATASE 96 IU/L (42-121); ANION GAP 16 (8-16); ASPARTATE AMINO TRANSFERASE 59 IU/L (15-46); BILIRUBIN,INDIRECT 1.2 mg/dl (0-1.1); BILIRUBIN,TOTAL 1.2 mg/dl (0.2-1.3); BLOOD UREA NITROGEN 27 mg/dl (7-20); CALCIUM 7.8 mg/dl (8.4-10.2); CARBON DIOXIDE 29 mmol/L (21-31); CHLORIDE 106 mmol/L (97-110); CREATININE 1.45 mg/dl (0.61-1.24); GLUCOSE 110 mg/dl (70-220); POTASSIUM 3.4 mmol/L (3.5-5.1); SODIUM 148 mmol/L (135-144); TOTAL PROTEIN 6.5 g/dl (6.1-8.1)
[2018-04-04 01:42] LABS: AMYLASE 90 U/L (11-123); CREATINE KINASE 139 IU/L (23-200); LIPASE 46 U/L (23-300); MAGNESIUM 1.6 mg/dl (1.7-2.5)
[2018-04-04 01:42] LABS: PHOSPHORUS 5.1 mg/dl (2.5-4.9)
[2018-04-04 01:51] LABS: CK INDEX 4.7
[2018-04-04 01:53] LABS: CK-MB 6.51 ng/ml (0.0-2.4)
[2018-04-04] MEDS: PROPOFOL 100 ML IV ×3 (02:06→20:51)
[2018-04-04 02:13] LABS: TROPONIN-I 0.201 ng/ml (0.00-0.12)
[2018-04-04] MEDS ORDERED: MAGNESIUM SULFATE 1 GM/D5W 100 ML (04:42)
[2018-04-04] MEDS: MAGNESIUM SULFATE 1 GM/D5W 100 ML IVPB (04:45)
[2018-04-04] MEDS: FUROSEMIDE 40 MG INJ IV ×2 (05:00→18:09)
[2018-04-04] MEDS: PANTOPRAZOLE 40 MG INJ IV ×2 (05:00→18:09)
[2018-04-04] MEDS: OCULAR LUBRICANT 3.5 GM OPH OINT BOTH EYES ×4 (05:01→23:19)
[2018-04-04] MEDS: PIPER-TAZO 3.375 GM IV (PMX) 100 ML IVPB ×4 (05:01→22:33)
[2018-04-04] MEDS: ARTIFICIAL TEARS 15 ML OPH BOTH EYES ×4 (05:01→23:18)
[2018-04-04 05:10] LABS: ADD MAN DIFF? NO
[2018-04-04 05:17] LABS: ABNORMAL IP MESSAGE 1; BASOPHILS % 0.1 % (0.0-2.0); EOSINOPHILS # 0.1 10^3/ul (0.0-0.5); EOSINOPHILS % 0.5 % (0.0-7.0); HEMATOCRIT 46.3 % (42.0-52.0); LYMPHOCYTES # 0.5 10^3/ul (0.8-2.9); LYMPHOCYTES % 4.7 % (15.0-51.0); MEAN CORPUSCULAR HEMOGLOBIN 29.9 pg (29.0-33.0); MEAN CORPUSCULAR HGB CONC 32.4 g/dl (32.0-37.0); MEAN CORPUSCULAR VOLUME 92.2 fl (82.0-101.0); MEAN PLATELET VOLUME 10.9 fl (7.4-10.4); MONOCYTES % 8.6 % (0.0-11.0); NEUTROPHIL # 9.5 10^3/ul (1.6-7.5); NEUTROPHILS % 85.2 % (39.0-77.0); PLATELET COUNT 190 10^3/UL (140-415); POSITIVE DIFF @See below; RED BLOOD COUNT 5.02 10^6/ul (4.70-6.10); RED CELL DISTRIBUTION WIDTH 14.4 % (11.5-14.5)
[2018-04-04 05:17] LABS: WHITE BLOOD COUNT 11.2 10^3/ul (4.8-10.8)
[2018-04-04 05:34] LABS: PARTIAL THROMBOPLASTIN TIME 31.5 Sec (25.0-35.0)
[2018-04-04 05:37] LABS: AMYLASE 90 U/L (11-123); CREATINE KINASE 118 IU/L (23-200); LIPASE 32 U/L (23-300); MAGNESIUM 1.8 mg/dl (1.7-2.5)
[2018-04-04 05:37] LABS: PHOSPHORUS 5.3 mg/dl (2.5-4.9)
[2018-04-04] MEDS: SOD CHLORIDE 0.9% 1,000 ML IV (05:37)
[2018-04-04 05:40] LABS: ALANINE AMINOTRANSFERASE 71 IU/L (13-69); ALBUMIN 2.8 g/dl (3.3-4.9); ALBUMIN/GLOBULIN RATIO 0.93; ALKALINE PHOSPHATASE 92 IU/L (42-121); ANION GAP 12 (8-16); ASPARTATE AMINO TRANSFERASE 57 IU/L (15-46); BILIRUBIN,INDIRECT 1.2 mg/dl (0-1.1); BILIRUBIN,TOTAL 1.3 mg/dl (0.2-1.3); BLOOD UREA NITROGEN 29 mg/dl (7-20); CALCIUM 8.6 mg/dl (8.4-10.2); CARBON DIOXIDE 33 mmol/L (21-31); CHLORIDE 107 mmol/L (97-110); CREATININE 1.56 mg/dl (0.61-1.24); GLUCOSE 110 mg/dl (70-220); POTASSIUM 3.9 mmol/L (3.5-5.1); SODIUM 148 mmol/L (135-144); TOTAL PROTEIN 5.8 g/dl (6.1-8.1)
[2018-04-04 05:49] LABS: LACTIC ACID 1.3 mmol/L (0.5-2.0)
[2018-04-04 05:50] LABS: CK INDEX 5.6
[2018-04-04 05:52] LABS: CK-MB 6.55 ng/ml (0.0-2.4); TROPONIN-I 0.195 ng/ml (0.00-0.12)
[2018-04-04 05:56] LABS: INR 1.08; PROTIME 14.1 Sec (11.9-14.9); PT RATIO 1.1
[2018-04-04] MEDS: MIDAZOLAM (DRIP) 50 mg/50 mL 50 ML IV ×2 (05:58→15:16)
[2018-04-04 05:59] LABS: D-DIMER 2066.03 ng/ml (<460)
[2018-04-04] MEDS: FENTAnyl (DRIP) 1000 mcg/100mL 100 ML IV ×2 (06:04→15:12)
[2018-04-04] MEDS: ASPIRIN (EC) 81 MG TAB PO (10:00)
[2018-04-04 14:38] LABS: ADD MAN DIFF? NO
[2018-04-04 14:40] LABS: WHITE BLOOD COUNT 11.6 10^3/ul (4.8-10.8)
[2018-04-04 14:40] LABS: BASOPHILS % 0.1 % (0.0-2.0); EOSINOPHILS # 0.1 10^3/ul (0.0-0.5); EOSINOPHILS % 0.4 % (0.0-7.0); HEMATOCRIT 40.1 % (42.0-52.0); HEMOGLOBIN 12.8 g/dl (14.0-18.0); LYMPHOCYTES # 0.6 10^3/ul (0.8-2.9); LYMPHOCYTES % 5.3 % (15.0-51.0); MEAN CORPUSCULAR HEMOGLOBIN 30.2 pg (29.0-33.0); MEAN CORPUSCULAR HGB CONC 31.9 g/dl (32.0-37.0); MEAN CORPUSCULAR VOLUME 94.6 fl (82.0-101.0); MEAN PLATELET VOLUME 10.4 fl (7.4-10.4); MONOCYTE # 0.6 10^3/ul (0.3-0.9); MONOCYTES % 5.3 % (0.0-11.0); NEUTROPHIL # 10.2 10^3/ul (1.6-7.5); PLATELET COUNT 158 10^3/UL (140-415); RED BLOOD COUNT 4.24 10^6/ul (4.70-6.10); RED CELL DISTRIBUTION WIDTH 14.6 % (11.5-14.5)
[2018-04-04 15:00] LABS: ALANINE AMINOTRANSFERASE 54 IU/L (13-69); ALBUMIN 2.5 g/dl (3.3-4.9); ALBUMIN/GLOBULIN RATIO 0.86; ALKALINE PHOSPHATASE 76 IU/L (42-121); AMYLASE 64 U/L (11-123); ANION GAP 10 (8-16); ASPARTATE AMINO TRANSFERASE 36 IU/L (15-46); BILIRUBIN,INDIRECT 0.9 mg/dl (0-1.1); BILIRUBIN,TOTAL 0.9 mg/dl (0.2-1.3); BLOOD UREA NITROGEN 24 mg/dl (7-20); CALCIUM 6.5 mg/dl (8.4-10.2); CARBON DIOXIDE 27 mmol/L (21-31); CHLORIDE 111 mmol/L (97-110); CREATINE KINASE 63 IU/L (23-200); CREATININE 1.48 mg/dl (0.61-1.24); GLUCOSE 96 mg/dl (70-220); LIPASE 42 U/L (23-300); MAGNESIUM 1.5 mg/dl (1.7-2.5); POTASSIUM 3.1 mmol/L (3.5-5.1); SODIUM 145 mmol/L (135-144); TOTAL PROTEIN 5.4 g/dl (6.1-8.1)
[2018-04-04 15:00] LABS: PHOSPHORUS 5.3 mg/dl (2.5-4.9)
[2018-04-04 15:05] LABS: INR 1.29; PROTIME 16.3 Sec (11.9-14.9); PT RATIO 1.3
[2018-04-04 15:08] LABS: D-DIMER 799.11 ng/ml (<460)
[2018-04-04 15:10] LABS: CK INDEX 6.7; TROPONIN-I 0.118 ng/ml (0.00-0.12)
[2018-04-04 15:26] LABS: CK-MB 4.24 ng/ml (0.0-2.4)
[2018-04-04] MEDS: POTASSIUM CHLORIDE 100 ML IVPB (16:47)
[2018-04-04] MEDS: VANCOMYCIN 1.5 GM in SOD CHLORIDE 0.9% 250 ML IVPB (19:03)
[2018-04-04 19:22] LABS: ADD MAN DIFF? NO
[2018-04-04 19:27] LABS: WHITE BLOOD COUNT 15.4 10^3/ul (4.8-10.8)
[2018-04-04 19:27] LABS: ABNORMAL IP MESSAGE 1; HEMATOCRIT 45.4 % (42.0-52.0); HEMOGLOBIN 14.5 g/dl (14.0-18.0); MEAN CORPUSCULAR HGB CONC 31.9 g/dl (32.0-37.0); MEAN CORPUSCULAR VOLUME 93.8 fl (82.0-101.0); MEAN PLATELET VOLUME 10.8 fl (7.4-10.4); PLATELET COUNT 182 10^3/UL (140-415); POSITIVE DIFF @See below; RED BLOOD COUNT 4.84 10^6/ul (4.70-6.10); RED CELL DISTRIBUTION WIDTH 14.9 % (11.5-14.5)
[2018-04-04 19:49] LABS: LACTIC ACID 1.4 mmol/L (0.5-2.0); PARTIAL THROMBOPLASTIN TIME 35.4 Sec (25.0-35.0); PHOSPHORUS 7.3 mg/dl (2.5-4.9)
[2018-04-04 19:49] LABS: AMYLASE 94 U/L (11-123); CREATINE KINASE 64 IU/L (23-200); INR 1.24; LIPASE 62 U/L (23-300); MAGNESIUM 1.8 mg/dl (1.7-2.5); PROTIME 15.8 Sec (11.9-14.9); PT RATIO 1.2
[2018-04-04 19:52] LABS: ALANINE AMINOTRANSFERASE 54 IU/L (13-69); ALKALINE PHOSPHATASE 94 IU/L (42-121); ANION GAP 14 (8-16); ASPARTATE AMINO TRANSFERASE 47 IU/L (15-46); BILIRUBIN,INDIRECT 0.9 mg/dl (0-1.1); BILIRUBIN,TOTAL 0.9 mg/dl (0.2-1.3); BLOOD UREA NITROGEN 30 mg/dl (7-20); CARBON DIOXIDE 32 mmol/L (21-31); CHLORIDE 106 mmol/L (97-110); CREATININE 2.02 mg/dl (0.61-1.24); GLUCOSE 112 mg/dl (70-220); POTASSIUM 4.1 mmol/L (3.5-5.1); SODIUM 148 mmol/L (135-144); TOTAL PROTEIN 6.3 g/dl (6.1-8.1)
[2018-04-04 20:02] LABS: AADO2 Arterial 213.9 mmHg (7.0-24.0); Allen Test ACCEPTAB; Arterial Base Excess -4.2 mmol/L (-3.0-3); Arterial Blood Gas Oxygen Sat 97.7 mmHG (95.0-98.0); Arterial COHb 0.4 % (0.0-3.0); Arterial HCO3 20.1 mmol/L (22.0-26.0); Arterial MetHb 0.3 % (0.0-1.5); Arterial Total Hemglobin 12.8 g/dl (12.0-18.0); MODE VENT - AC; Site Right Radial; Temperature 35.4 C
[2018-04-04 20:38] LABS: CK-MB 4.45 ng/ml (0.0-2.4); TROPONIN-I 0.143 ng/ml (0.000-0.120)
[2018-04-04] MEDS: ATORVASTATIN 40 MG TAB PO (20:52)
[2018-04-04 21:33] LABS: D-DIMER 1047.77 ng/ml (<460)
[2018-04-04 21:40] LABS: ANISOCYTOSIS 1+ (0-0); BAND NEUTROPHILS #M 1.5 10^3/ul (0.0-0.6); BAND NEUTROPHILS % (M) 10 % (0-4); EOSINOPHILS % (M) 1 % (0-7); LYMPHOCYTES #M 0.1 10^3/ul (0.8-2.9); LYMPHOCYTES % (M) 1 % (15-51); MONOCYTE #M 0.9 10^3/ul (0.3-0.9); MONOCYTES % (M) 6 % (0-11); PLATELET MORPHOLOGY COMMENT @See below; POIKILOCYTOSIS 1+ (0-0); SEG NEUT #M 12.9 10^3/ul (1.6-7.5); SEGMENTED NEUTROPHILS (M) % 82 % (39-77); SMUDGE%M 17 % (0-0)
[2018-04-04] MEDS: DEXTROSE 5% 1,000 ML IV (23:18)
[2018-04-05 00:09] LABS: AADO2 Arterial 222.8 mmHg (7.0-24.0); Allen Test ACCEPTAB; Arterial Base Excess 3.3 mmol/L (-3.0-3); Arterial Blood Gas Oxygen Sat 93.3 mmHG (95.0-98.0); Arterial COHb 0.7 % (0.0-3.0); Arterial Fraction of Oxyhgb 92.4 % (93.0-99.0); Arterial HCO3 30.4 mmol/L (22.0-26.0); Arterial MetHb 0.3 % (0.0-1.5); Arterial Total Hemglobin 15.6 g/dl (12.0-18.0); Arterial pCO2 56.1 mmhg (35-45); MODE VENT - AC; Site Right Radial
[2018-04-05 01:28] LABS: ADD MAN DIFF? NO
[2018-04-05] MEDS: MIDAZOLAM (DRIP) 50 mg/50 mL 50 ML IV (01:28)
[2018-04-05 01:31] LABS: WHITE BLOOD COUNT 18.3 10^3/ul (4.8-10.8)
[2018-04-05 01:31] LABS: ABNORMAL IP MESSAGE 1; BASOPHILS % 0.2 % (0.0-2.0); EOSINOPHILS # 0.1 10^3/ul (0.0-0.5); EOSINOPHILS % 0.3 % (0.0-7.0); HEMATOCRIT 49.1 % (42.0-52.0); HEMOGLOBIN 15.4 g/dl (14.0-18.0); LYMPHOCYTES # 0.6 10^3/ul (0.8-2.9); LYMPHOCYTES % 3.2 % (15.0-51.0); MEAN CORPUSCULAR HGB CONC 31.4 g/dl (32.0-37.0); MEAN CORPUSCULAR VOLUME 95.5 fl (82.0-101.0); MEAN PLATELET VOLUME 11.4 fl (7.4-10.4); MONOCYTE # 1.8 10^3/ul (0.3-0.9); NEUTROPHIL # 15.5 10^3/ul (1.6-7.5); NEUTROPHILS % 84.4 % (39.0-77.0); PLATELET COUNT 206 10^3/UL (140-415); POSITIVE DIFF @See below; RED BLOOD COUNT 5.14 10^6/ul (4.70-6.10)
[2018-04-05] MEDS: FENTAnyl (DRIP) 1000 mcg/100mL 100 ML IV (01:31)
[2018-04-05 02:01] LABS: ALANINE AMINOTRANSFERASE 62 IU/L (13-69); ALBUMIN 3.2 g/dl (3.3-4.9); ALBUMIN/GLOBULIN RATIO 0.91; ALKALINE PHOSPHATASE 109 IU/L (42-121); ANION GAP 15 (8-16); ASPARTATE AMINO TRANSFERASE 44 IU/L (15-46); BILIRUBIN,INDIRECT 0.9 mg/dl (0-1.1); BILIRUBIN,TOTAL 0.9 mg/dl (0.2-1.3); BLOOD UREA NITROGEN 31 mg/dl (7-20); CALCIUM 8.3 mg/dl (8.4-10.2); CARBON DIOXIDE 35 mmol/L (21-31); CHLORIDE 105 mmol/L (97-110); CREATININE 2.29 mg/dl (0.61-1.24); GLUCOSE 83 mg/dl (70-220); POTASSIUM 4.1 mmol/L (3.5-5.1); SODIUM 151 mmol/L (135-144); TOTAL PROTEIN 6.7 g/dl (6.1-8.1)
[2018-04-05] MEDS: ARTIFICIAL TEARS 15 ML OPH BOTH EYES ×3 (05:07→18:18)
[2018-04-05] MEDS: OCULAR LUBRICANT 3.5 GM OPH OINT BOTH EYES ×3 (05:08→18:18)
[2018-04-05] MEDS: PANTOPRAZOLE 40 MG INJ IV ×2 (05:08→18:17)
[2018-04-05] MEDS: FUROSEMIDE 40 MG INJ IV ×2 (05:08→18:17)
[2018-04-05] MEDS: PIPER-TAZO 3.375 GM IV (PMX) 100 ML IVPB ×3 (05:26→21:11)
[2018-04-05 06:17] LABS: ADD MAN DIFF? NO
[2018-04-05 06:27] LABS: WHITE BLOOD COUNT 17.8 10^3/ul (4.8-10.8)
[2018-04-05 06:27] LABS: ABNORMAL IP MESSAGE 1; BASOPHILS % 0.2 % (0.0-2.0); EOSINOPHILS % 0.2 % (0.0-7.0); HEMATOCRIT 43.9 % (42.0-52.0); HEMOGLOBIN 14.1 g/dl (14.0-18.0); LYMPHOCYTES # 0.6 10^3/ul (0.8-2.9); LYMPHOCYTES % 3.1 % (15.0-51.0); MEAN CORPUSCULAR HEMOGLOBIN 30.4 pg (29.0-33.0); MEAN CORPUSCULAR HGB CONC 32.1 g/dl (32.0-37.0); MEAN CORPUSCULAR VOLUME 94.6 fl (82.0-101.0); MEAN PLATELET VOLUME 11.6 fl (7.4-10.4); MONOCYTE # 1.5 10^3/ul (0.3-0.9); MONOCYTES % 8.3 % (0.0-11.0); NEUTROPHIL # 15.5 10^3/ul (1.6-7.5); NEUTROPHILS % 86.8 % (39.0-77.0); PLATELET COUNT 199 10^3/UL (140-415); POSITIVE DIFF @See below; RED BLOOD COUNT 4.64 10^6/ul (4.70-6.10); RED CELL DISTRIBUTION WIDTH 14.8 % (11.5-14.5)
[2018-04-05 06:55] LABS: ALANINE AMINOTRANSFERASE 56 IU/L (13-69); ALBUMIN 2.8 g/dl (3.3-4.9); ALBUMIN/GLOBULIN RATIO 0.84; ALKALINE PHOSPHATASE 97 IU/L (42-121); ANION GAP 13 (8-16); ASPARTATE AMINO TRANSFERASE 39 IU/L (15-46); BILIRUBIN,INDIRECT 0.6 mg/dl (0-1.1); BILIRUBIN,TOTAL 0.6 mg/dl (0.2-1.3); BLOOD UREA NITROGEN 31 mg/dl (7-20); CALCIUM 7.9 mg/dl (8.4-10.2); CARBON DIOXIDE 33 mmol/L (21-31); CHLORIDE 107 mmol/L (97-110); CREATININE 2.39 mg/dl (0.61-1.24); GLUCOSE 117 mg/dl (70-220); POTASSIUM 3.7 mmol/L (3.5-5.1); SODIUM 149 mmol/L (135-144); TOTAL PROTEIN 6.1 g/dl (6.1-8.1)
[2018-04-05] MEDS: PROPOFOL 100 ML IV ×3 (07:14→21:29)
[2018-04-05 09:00] LABS: Allen Test ACCEPTAB; Arterial Base Excess 4.4 mmol/L (-3.0-3); Arterial Blood Gas Oxygen Sat 95.3 mmHG (95.0-98.0); Arterial COHb 0.5 % (0.0-3.0); Arterial Fraction of Oxyhgb 94.5 % (93.0-99.0); Arterial HCO3 31.6 mmol/L (22.0-26.0); Arterial MetHb 0.3 % (0.0-1.5); Arterial Total Hemglobin 14.9 g/dl (12.0-18.0); Arterial pCO2 57.9 mmhg (35-45); MODE VENT - AC; Site Right Radial
[2018-04-05] MEDS: ASPIRIN (EC) 81 MG TAB PO (10:00)
[2018-04-05 10:04] LABS: BAND NEUTROPHILS % (M) 23 % (0-4); GIANT THROMBO% (M) 1 % (0-0); LYMPHOCYTES #M 0.3 10^3/ul (0.8-2.9); LYMPHOCYTES % (M) 2 % (15-51); MONOCYTE #M 1.4 10^3/ul (0.3-0.9); MONOCYTES % (M) 8 % (0-11); SEG NEUT #M 12.6 10^3/ul (1.6-7.5); SEGMENTED NEUTROPHILS (M) % 67 % (39-77)
[2018-04-05 11:36] LABS: ADD MAN DIFF? NO
[2018-04-05 11:41] LABS: ABNORMAL IP MESSAGE 1; BASOPHILS % 0.2 % (0.0-2.0); EOSINOPHILS # 0.1 10^3/ul (0.0-0.5); EOSINOPHILS % 0.3 % (0.0-7.0); HEMATOCRIT 44.8 % (42.0-52.0); HEMOGLOBIN 14.1 g/dl (14.0-18.0); LYMPHOCYTES # 0.6 10^3/ul (0.8-2.9); LYMPHOCYTES % 2.8 % (15.0-51.0); MEAN CORPUSCULAR HEMOGLOBIN 30.2 pg (29.0-33.0); MEAN CORPUSCULAR HGB CONC 31.5 g/dl (32.0-37.0); MEAN CORPUSCULAR VOLUME 95.9 fl (82.0-101.0); MEAN PLATELET VOLUME 10.8 fl (7.4-10.4); MONOCYTE # 1.9 10^3/ul (0.3-0.9); MONOCYTES % 9.2 % (0.0-11.0); NEUTROPHIL # 17.5 10^3/ul (1.6-7.5); NEUTROPHILS % 85.4 % (39.0-77.0); PLATELET COUNT 194 10^3/UL (140-415); POSITIVE DIFF @See below; RED BLOOD COUNT 4.67 10^6/ul (4.70-6.10); RED CELL DISTRIBUTION WIDTH 14.7 % (11.5-14.5)
[2018-04-05 11:41] LABS: WHITE BLOOD COUNT 20.5 10^3/ul (4.8-10.8)
[2018-04-05 12:02] LABS: ALANINE AMINOTRANSFERASE 62 IU/L (13-69); ALBUMIN/GLOBULIN RATIO 0.85; ALKALINE PHOSPHATASE 109 IU/L (42-121); ANION GAP 13 (8-16); ASPARTATE AMINO TRANSFERASE 40 IU/L (15-46); BILIRUBIN,INDIRECT 0.6 mg/dl (0-1.1); BILIRUBIN,TOTAL 0.6 mg/dl (0.2-1.3); BLOOD UREA NITROGEN 30 mg/dl (7-20); CALCIUM 7.9 mg/dl (8.4-10.2); CARBON DIOXIDE 34 mmol/L (21-31); CHLORIDE 102 mmol/L (97-110); CREATININE 2.36 mg/dl (0.61-1.24); GLUCOSE 222 mg/dl (70-220); POTASSIUM 3.7 mmol/L (3.5-5.1); SODIUM 145 mmol/L (135-144); TOTAL PROTEIN 6.5 g/dl (6.1-8.1)
[2018-04-05] MEDS: DEXTROSE 5% 1,000 ML IV ×2 (14:00→15:40)
[2018-04-05 18:06] LABS: ADD MAN DIFF? NO
[2018-04-05 18:08] LABS: BASOPHILS % 0.1 % (0.0-2.0); EOSINOPHILS # 0.1 10^3/ul (0.0-0.5); EOSINOPHILS % 0.4 % (0.0-7.0); HEMATOCRIT 40.8 % (42.0-52.0); HEMOGLOBIN 12.8 g/dl (14.0-18.0); LYMPHOCYTES # 0.7 10^3/ul (0.8-2.9); LYMPHOCYTES % 4.4 % (15.0-51.0); MEAN CORPUSCULAR HEMOGLOBIN 29.6 pg (29.0-33.0); MEAN CORPUSCULAR HGB CONC 31.4 g/dl (32.0-37.0); MEAN CORPUSCULAR VOLUME 94.4 fl (82.0-101.0); MEAN PLATELET VOLUME 11.3 fl (7.4-10.4); MONOCYTE # 1.2 10^3/ul (0.3-0.9); NEUTROPHIL # 14.3 10^3/ul (1.6-7.5); NEUTROPHILS % 85.5 % (39.0-77.0); PLATELET COUNT 196 10^3/UL (140-415); POSITIVE DIFF @See below; RED BLOOD COUNT 4.32 10^6/ul (4.70-6.10); RED CELL DISTRIBUTION WIDTH 14.6 % (11.5-14.5)
[2018-04-05 18:08] LABS: WHITE BLOOD COUNT 16.7 10^3/ul (4.8-10.8)
[2018-04-05 18:28] LABS: ALANINE AMINOTRANSFERASE 49 IU/L (13-69); ALBUMIN 2.7 g/dl (3.3-4.9); ALBUMIN/GLOBULIN RATIO 0.81; ALKALINE PHOSPHATASE 94 IU/L (42-121); ANION GAP 11 (8-16); ASPARTATE AMINO TRANSFERASE 43 IU/L (15-46); BILIRUBIN,INDIRECT 0.6 mg/dl (0-1.1); BILIRUBIN,TOTAL 0.6 mg/dl (0.2-1.3); BLOOD UREA NITROGEN 35 mg/dl (7-20); CALCIUM 7.8 mg/dl (8.4-10.2); CARBON DIOXIDE 34 mmol/L (21-31); CHLORIDE 105 mmol/L (97-110); CREATININE 2.48 mg/dl (0.61-1.24); GLUCOSE 112 mg/dl (70-220); POTASSIUM 3.7 mmol/L (3.5-5.1); SODIUM 146 mmol/L (135-144)
[2018-04-05] MEDS: VANCOMYCIN 1 GM 250 ML IVPB (21:10)
[2018-04-05] MEDS: MUPIROCIN 2% 22 GM OINT TOP (21:11)
[2018-04-05] MEDS: ATORVASTATIN 40 MG TAB PO (21:11)
[2018-04-05] MEDS: METOPROLOL 25 MG TAB PO (21:11)
[2018-04-06] MEDS: ARTIFICIAL TEARS 15 ML OPH BOTH EYES ×4 (00:34→18:35)
[2018-04-06] MEDS: OCULAR LUBRICANT 3.5 GM OPH OINT BOTH EYES ×4 (00:34→18:35)
[2018-04-06] MEDS: PROPOFOL 100 ML IV ×3 (02:59→18:57)
[2018-04-06] MEDS: FUROSEMIDE 40 MG INJ IV (06:19)
[2018-04-06] MEDS: PIPER-TAZO 3.375 GM IV (PMX) 100 ML IVPB (06:20)
[2018-04-06] MEDS: PANTOPRAZOLE (EC) 40 MG TAB PO (06:20)
[2018-04-06 06:21] LABS: ADD MAN DIFF? NO
[2018-04-06 06:25] LABS: ABNORMAL IP MESSAGE 1; BASOPHILS % 0.2 % (0.0-2.0); EOSINOPHILS # 0.1 10^3/ul (0.0-0.5); EOSINOPHILS % 0.3 % (0.0-7.0); HEMATOCRIT 43.4 % (42.0-52.0); HEMOGLOBIN 13.6 g/dl (14.0-18.0); LYMPHOCYTES # 0.8 10^3/ul (0.8-2.9); LYMPHOCYTES % 4.2 % (15.0-51.0); MEAN CORPUSCULAR HGB CONC 31.3 g/dl (32.0-37.0); MEAN CORPUSCULAR VOLUME 95.6 fl (82.0-101.0); MEAN PLATELET VOLUME 11.5 fl (7.4-10.4); MONOCYTE # 1.6 10^3/ul (0.3-0.9); MONOCYTES % 8.7 % (0.0-11.0); NEUTROPHIL # 15.6 10^3/ul (1.6-7.5); NEUTROPHILS % 85.3 % (39.0-77.0); PLATELET COUNT 221 10^3/UL (140-415); POSITIVE DIFF @See below; RED BLOOD COUNT 4.54 10^6/ul (4.70-6.10); RED CELL DISTRIBUTION WIDTH 14.6 % (11.5-14.5)
[2018-04-06 06:25] LABS: WHITE BLOOD COUNT 18.2 10^3/ul (4.8-10.8)
[2018-04-06 07:01] LABS: ANION GAP 14 (8-16); BLOOD UREA NITROGEN 35 mg/dl (7-20); CALCIUM 8.3 mg/dl (8.4-10.2); CARBON DIOXIDE 34 mmol/L (21-31); CHLORIDE 104 mmol/L (97-110); CREATININE 2.54 mg/dl (0.61-1.24); GLUCOSE 101 mg/dl (70-220); MAGNESIUM 1.9 mg/dl (1.7-2.5); PHOSPHORUS 5.5 mg/dl (2.5-4.9); POTASSIUM 3.7 mmol/L (3.5-5.1); SODIUM 148 mmol/L (135-144)
[2018-04-06 08:11] LABS: AADO2 Arterial 318.9 mmHg (7.0-24.0); Allen Test ACCEPTAB; Arterial Base Excess 3.3 mmol/L (-3.0-3); Arterial Blood Gas Oxygen Sat 95.5 mmHG (95.0-98.0); Arterial COHb 0.6 % (0.0-3.0); Arterial Fraction of Oxyhgb 94.7 % (93.0-99.0); Arterial HCO3 30.5 mmol/L (22.0-26.0); Arterial MetHb 0.2 % (0.0-1.5); Arterial Total Hemglobin 14.2 g/dl (12.0-18.0); Arterial pCO2 57.5 mmhg (35-45); MODE VENT - AC; Site Right Radial
[2018-04-06] MEDS: ASPIRIN (EC) 81 MG TAB PO (08:45)
[2018-04-06] MEDS: MUPIROCIN 2% 22 GM OINT TOP ×2 (08:45→21:26)
[2018-04-06] MEDS: METOPROLOL 25 MG TAB PO ×2 (08:45→21:25)
[2018-04-06] MEDS: FENTAnyl (DRIP) 1000 mcg/100mL 100 ML IV (12:00)
[2018-04-06] MEDS: ATORVASTATIN 40 MG TAB PO (21:25)
[2018-04-06] MEDS: VANCOMYCIN 1 GM 250 ML IVPB (21:26)
[2018-04-07] MEDS: ARTIFICIAL TEARS 15 ML OPH BOTH EYES ×4 (00:10→18:00)
[2018-04-07] MEDS: OCULAR LUBRICANT 3.5 GM OPH OINT BOTH EYES ×4 (00:11→18:00)
[2018-04-07] MEDS: PROPOFOL 100 ML IV ×5 (01:38→22:32)
[2018-04-07 05:20] LABS: ADD MAN DIFF? NO
[2018-04-07 05:32] LABS: BASOPHILS % 0.2 % (0.0-2.0); EOSINOPHILS # 0.1 10^3/ul (0.0-0.5); LYMPHOCYTES # 0.9 10^3/ul (0.8-2.9); LYMPHOCYTES % 7.2 % (15.0-51.0); MEAN CORPUSCULAR HEMOGLOBIN 29.4 pg (29.0-33.0); MEAN CORPUSCULAR HGB CONC 31.7 g/dl (32.0-37.0); MEAN CORPUSCULAR VOLUME 92.8 fl (82.0-101.0); MONOCYTE # 1.4 10^3/ul (0.3-0.9); MONOCYTES % 11.5 % (0.0-11.0); NEUTROPHIL # 9.9 10^3/ul (1.6-7.5); NEUTROPHILS % 79.4 % (39.0-77.0); PLATELET COUNT 225 10^3/UL (140-415); RED BLOOD COUNT 4.42 10^6/ul (4.70-6.10); RED CELL DISTRIBUTION WIDTH 14.3 % (11.5-14.5)
[2018-04-07 05:32] LABS: WHITE BLOOD COUNT 12.4 10^3/ul (4.8-10.8)
[2018-04-07] MEDS: PANTOPRAZOLE 40 MG INJ IV (05:51)
[2018-04-07 06:09] LABS: ANION GAP 8 (8-16); BLOOD UREA NITROGEN 42 mg/dl (7-20); CALCIUM 8.7 mg/dl (8.4-10.2); CARBON DIOXIDE 34 mmol/L (21-31); CHLORIDE 104 mmol/L (97-110); CREATININE 2.67 mg/dl (0.61-1.24); GLUCOSE 127 mg/dl (70-220); PHOSPHORUS 3.8 mg/dl (2.5-4.9); POTASSIUM 3.3 mmol/L (3.5-5.1); SODIUM 143 mmol/L (135-144)
[2018-04-07] MEDS: METOPROLOL 25 MG TAB PO ×2 (09:43→10:47)
[2018-04-07] MEDS: POTASSIUM CHLORIDE 50 ML IVPB ×2 (09:43→12:41)
[2018-04-07] MEDS: MUPIROCIN 2% 22 GM OINT TOP ×2 (09:44→21:44)
[2018-04-07] MEDS: ASPIRIN (EC) 81 MG TAB PO (09:44)
[2018-04-07] MEDS: hydrALAzine 20 MG INJ IV (10:45)
[2018-04-07] MEDS: DIGOXIN 500 MCG INJ IV ×2 (13:14→18:26)
[2018-04-07] MEDS: DOXYCYCLINE 100 MG TAB NGT ×2 (13:29→21:44)
[2018-04-07] MEDS: ENOXAPARIN 40 MG/0.4 ML SYG SC ×2 (13:35→21:55)
[2018-04-07] MEDS: FENTAnyl (DRIP) 1000 mcg/100mL 100 ML IV (14:46)
[2018-04-07] MEDS: METOPROLOL 5 MG INJ IV (15:38)
[2018-04-07 19:45] LABS: SODIUM,URINE RANDOM 24 mmol/L (30-90)
[2018-04-07 19:45] LABS: CREATININE,URINE RANDOM 171.71 mg/dl (20-370)
[2018-04-07] MEDS: ATORVASTATIN 40 MG TAB PO (21:44)
[2018-04-07] MEDS: METOPROLOL 50 MG TAB NGT (21:44)
[2018-04-08] MEDS: MUPIROCIN 2% 22 GM OINT TOP ×2 (00:03→20:40)
[2018-04-08] MEDS: ARTIFICIAL TEARS 15 ML OPH BOTH EYES ×4 (00:03→17:32)
[2018-04-08] MEDS: OCULAR LUBRICANT 3.5 GM OPH OINT BOTH EYES ×4 (00:04→17:32)
[2018-04-08] MEDS: METOPROLOL 5 MG INJ IV ×3 (03:08→23:03)
[2018-04-08] MEDS: PROPOFOL 100 ML IV ×7 (04:39→23:13)
[2018-04-08 05:21] LABS: ADD MAN DIFF? NO
[2018-04-08 05:23] LABS: WHITE BLOOD COUNT 7.5 10^3/ul (4.8-10.8)
[2018-04-08 05:23] LABS: BASOPHILS % 0.3 % (0.0-2.0); EOSINOPHILS # 0.2 10^3/ul (0.0-0.5); EOSINOPHILS % 2.1 % (0.0-7.0); HEMATOCRIT 38.3 % (42.0-52.0); HEMOGLOBIN 12.5 g/dl (14.0-18.0); LYMPHOCYTES # 1.2 10^3/ul (0.8-2.9); LYMPHOCYTES % 16.5 % (15.0-51.0); MEAN CORPUSCULAR HEMOGLOBIN 30.6 pg (29.0-33.0); MEAN CORPUSCULAR HGB CONC 32.6 g/dl (32.0-37.0); MEAN CORPUSCULAR VOLUME 93.6 fl (82.0-101.0); MEAN PLATELET VOLUME 11.1 fl (7.4-10.4); MONOCYTE # 1.5 10^3/ul (0.3-0.9); MONOCYTES % 19.5 % (0.0-11.0); NEUTROPHIL # 4.6 10^3/ul (1.6-7.5); NEUTROPHILS % 60.7 % (39.0-77.0); NUCLEATED RED BLOOD CELLS% 0.3 /100WBC (0.0-0.0); PLATELET COUNT 223 10^3/UL (140-415); RED BLOOD COUNT 4.09 10^6/ul (4.70-6.10); RED CELL DISTRIBUTION WIDTH 14.6 % (11.5-14.5)
[2018-04-08 05:39] LABS: ANION GAP 12 (8-16); BLOOD UREA NITROGEN 45 mg/dl (7-20); CALCIUM 8.6 mg/dl (8.4-10.2); CARBON DIOXIDE 34 mmol/L (21-31); CHLORIDE 108 mmol/L (97-110); CREATININE 2.36 mg/dl (0.61-1.24); GLUCOSE 101 mg/dl (70-220); MAGNESIUM 2.4 mg/dl (1.7-2.5); PHOSPHORUS 4.4 mg/dl (2.5-4.9); POTASSIUM 3.8 mmol/L (3.5-5.1); SODIUM 150 mmol/L (135-144)
[2018-04-08] MEDS: LANSOPRAZOLE 30 MG CAP NGT (06:00)
[2018-04-08] MEDS: DEXTROSE 5% 1,000 ML IV (06:24)
[2018-04-08] MEDS: FENTAnyl (DRIP) 1000 mcg/100mL 100 ML IV ×2 (07:23→22:28)
[2018-04-08] MEDS: ACETAMINOPHEN 650MG/20.3ML CUP PO (08:37)
[2018-04-08] MEDS: DOXYCYCLINE 100 MG TAB NGT ×2 (08:37→20:40)
[2018-04-08] MEDS: ASPIRIN (EC) 81 MG TAB PO (08:37)
[2018-04-08] MEDS: ENOXAPARIN 40 MG/0.4 ML SYG SC ×2 (08:39→20:41)
[2018-04-08] MEDS: ALTEPLASE (CATHFLO) 2 MG INJ CATHETER ×2 (08:57→14:20)
[2018-04-08] MEDS: METOPROLOL 50 MG TAB NGT (10:12)
[2018-04-08] MEDS: AMIODARONE 150MG/D5W BOLUS 100 ML IV (12:27)
[2018-04-08] MEDS: AMIODARONE 900 MG in DEXTROSE 5% 482 ML IV (13:23)
[2018-04-08] MEDS: ATENOLOL 50 MG TAB PO (20:40)
[2018-04-08] MEDS: ATORVASTATIN 40 MG TAB PO (20:40)
[2018-04-09] MEDS: ARTIFICIAL TEARS 15 ML OPH BOTH EYES ×4 (00:49→17:58)
[2018-04-09] MEDS: OCULAR LUBRICANT 3.5 GM OPH OINT BOTH EYES ×4 (00:50→17:57)
[2018-04-09] MEDS: hydrALAzine 20 MG INJ IV (02:03)
[2018-04-09] MEDS: PROPOFOL 100 ML IV ×4 (02:08→10:36)
[2018-04-09 05:42] LABS: ADD MAN DIFF? NO
[2018-04-09 05:54] LABS: WHITE BLOOD COUNT 6.7 10^3/ul (4.8-10.8)
[2018-04-09 05:54] LABS: BASOPHILS % 0.3 % (0.0-2.0); EOSINOPHILS # 0.2 10^3/ul (0.0-0.5); EOSINOPHILS % 3.3 % (0.0-7.0); HEMATOCRIT 38.8 % (42.0-52.0); LYMPHOCYTES # 0.7 10^3/ul (0.8-2.9); LYMPHOCYTES % 10.6 % (15.0-51.0); MEAN CORPUSCULAR HEMOGLOBIN 30.5 pg (29.0-33.0); MEAN CORPUSCULAR HGB CONC 33.5 g/dl (32.0-37.0); MEAN CORPUSCULAR VOLUME 91.1 fl (82.0-101.0); MEAN PLATELET VOLUME 11.4 fl (7.4-10.4); MONOCYTE # 0.7 10^3/ul (0.3-0.9); NEUTROPHILS % 74.3 % (39.0-77.0); PLATELET COUNT 244 10^3/UL (140-415); RED BLOOD COUNT 4.26 10^6/ul (4.70-6.10); RED CELL DISTRIBUTION WIDTH 14.6 % (11.5-14.5)
[2018-04-09] MEDS: LANSOPRAZOLE 30 MG CAP NGT (05:57)
[2018-04-09 06:13] LABS: ANION GAP 14 (8-16); BLOOD UREA NITROGEN 43 mg/dl (7-20); CALCIUM 8.3 mg/dl (8.4-10.2); CARBON DIOXIDE 29 mmol/L (21-31); CHLORIDE 104 mmol/L (97-110); CREATININE 1.72 mg/dl (0.61-1.24); GLUCOSE 149 mg/dl (70-220); MAGNESIUM 2.1 mg/dl (1.7-2.5); PHOSPHORUS 3.4 mg/dl (2.5-4.9); POTASSIUM 3.6 mmol/L (3.5-5.1); SODIUM 143 mmol/L (135-144)
[2018-04-09] MEDS: ATENOLOL 50 MG TAB PO ×2 (09:00→21:01)
[2018-04-09] MEDS: ENOXAPARIN 40 MG/0.4 ML SYG SC ×2 (09:01→21:08)
[2018-04-09] MEDS: ASPIRIN (EC) 81 MG TAB PO (09:51)
[2018-04-09] MEDS: DOXYCYCLINE 100 MG TAB NGT ×2 (09:51→21:01)
[2018-04-09] MEDS: MUPIROCIN 2% 22 GM OINT TOP ×2 (09:51→21:12)
[2018-04-09 09:55] LABS: CREATINE KINASE 81 IU/L (23-200)
[2018-04-09 10:04] LABS: CK INDEX 1.1; CK-MB 0.86 ng/ml (0.0-2.4)
[2018-04-09 10:08] LABS: TROPONIN-I 0.119 ng/ml (0.000-0.120)
[2018-04-09] MEDS: DILTIAZEM 25 MG INJ IV (10:36)
[2018-04-09] MEDS: FENTAnyl (DRIP) 1000 mcg/100mL 100 ML IV (10:36)
[2018-04-09] MEDS ORDERED: DEXMEDETOMIDINE HCL 200 MCG in NS 50 ML IV (11:00)
[2018-04-09] MEDS: DIGOXIN 500 MCG INJ IV (12:25)
[2018-04-09] MEDS: DEXMEDETOMIDINE HCL 200 MCG in NS 50 ML IV ×5 (12:25→21:42)
[2018-04-09] MEDS: METOPROLOL 5 MG INJ IV (12:25)
[2018-04-09] MEDS: ACETAMINOPHEN 650MG/20.3ML CUP PO (15:34)
[2018-04-09] MEDS: ATORVASTATIN 40 MG TAB PO (21:01)
[2018-04-10] MEDS: ARTIFICIAL TEARS 15 ML OPH BOTH EYES ×5 (01:39→23:34)
[2018-04-10] MEDS: OCULAR LUBRICANT 3.5 GM OPH OINT BOTH EYES ×5 (01:40→23:35)
[2018-04-10] MEDS: DILTIAZEM 25 MG INJ IV ×2 (02:01→06:38)
[2018-04-10] MEDS: DEXMEDETOMIDINE HCL 200 MCG in NS 50 ML IV ×6 (02:01→18:22)
[2018-04-10] MEDS: METOPROLOL 5 MG INJ IV ×2 (04:05→10:56)
[2018-04-10 05:17] LABS: ADD MAN DIFF? NO
[2018-04-10 05:21] LABS: BASOPHILS % 0.2 % (0.0-2.0); EOSINOPHILS # 0.5 10^3/ul (0.0-0.5); HEMATOCRIT 37.3 % (42.0-52.0); HEMOGLOBIN 12.2 g/dl (14.0-18.0); LYMPHOCYTES # 1.1 10^3/ul (0.8-2.9); LYMPHOCYTES % 18.1 % (15.0-51.0); MEAN CORPUSCULAR HEMOGLOBIN 29.3 pg (29.0-33.0); MEAN CORPUSCULAR HGB CONC 32.7 g/dl (32.0-37.0); MEAN CORPUSCULAR VOLUME 89.7 fl (82.0-101.0); MEAN PLATELET VOLUME 11.1 fl (7.4-10.4); MONOCYTE # 0.7 10^3/ul (0.3-0.9); MONOCYTES % 12.2 % (0.0-11.0); NEUTROPHIL # 3.6 10^3/ul (1.6-7.5); PLATELET COUNT 282 10^3/UL (140-415); RED BLOOD COUNT 4.16 10^6/ul (4.70-6.10); RED CELL DISTRIBUTION WIDTH 14.2 % (11.5-14.5)
[2018-04-10 05:50] LABS: ANION GAP 14 (8-16); BLOOD UREA NITROGEN 48 mg/dl (7-20); CALCIUM 8.1 mg/dl (8.4-10.2); CARBON DIOXIDE 29 mmol/L (21-31); CHLORIDE 105 mmol/L (97-110); CREATININE 1.98 mg/dl (0.61-1.24); GLUCOSE 117 mg/dl (70-220); POTASSIUM 3.6 mmol/L (3.5-5.1); SODIUM 144 mmol/L (135-144)
[2018-04-10] MEDS: LANSOPRAZOLE 30 MG CAP NGT (05:58)
[2018-04-10] MEDS: DOXYCYCLINE 100 MG TAB NGT ×2 (08:23→20:36)
[2018-04-10] MEDS: ATENOLOL 50 MG TAB PO ×2 (08:23→20:36)
[2018-04-10] MEDS: ASPIRIN (EC) 81 MG TAB PO (08:23)
[2018-04-10] MEDS: ENOXAPARIN 40 MG/0.4 ML SYG SC ×2 (08:31→20:40)
[2018-04-10] MEDS: MUPIROCIN 2% 22 GM OINT TOP ×2 (08:31→20:36)
[2018-04-10] MEDS: DIMETHICONE STICK TOP (08:32)
[2018-04-10] MEDS: SOD CHLORIDE 0.45% 1,000 ML IV ×2 (10:56→23:34)
[2018-04-10] MEDS: PROPOFOL 100 ML IV ×3 (11:38→23:34)
[2018-04-10] MEDS: ATORVASTATIN 40 MG TAB PO (20:36)
[2018-04-11] MEDS: DEXMEDETOMIDINE HCL 200 MCG in NS 50 ML IV ×2 (01:40→07:21)
[2018-04-11] MEDS: PROPOFOL 100 ML IV ×5 (04:58→22:00)
[2018-04-11] MEDS: OCULAR LUBRICANT 3.5 GM OPH OINT BOTH EYES ×3 (05:02→17:55)
[2018-04-11] MEDS: ARTIFICIAL TEARS 15 ML OPH BOTH EYES ×3 (05:03→17:55)
[2018-04-11 05:13] LABS: ADD MAN DIFF? NO
[2018-04-11 05:34] LABS: ANION GAP 10 (8-16); BASOPHILS % 0.7 % (0.0-2.0); BLOOD UREA NITROGEN 51 mg/dl (7-20); CALCIUM 8.4 mg/dl (8.4-10.2); CARBON DIOXIDE 30 mmol/L (21-31); CHLORIDE 108 mmol/L (97-110); CREATININE 1.81 mg/dl (0.61-1.24); EOSINOPHILS # 0.4 10^3/ul (0.0-0.5); EOSINOPHILS % 6.8 % (0.0-7.0); GLUCOSE 111 mg/dl (70-220); HEMATOCRIT 39.3 % (42.0-52.0); HEMOGLOBIN 12.7 g/dl (14.0-18.0); LYMPHOCYTES # 1.4 10^3/ul (0.8-2.9); LYMPHOCYTES % 23.6 % (15.0-51.0); MEAN CORPUSCULAR HEMOGLOBIN 29.5 pg (29.0-33.0); MEAN CORPUSCULAR HGB CONC 32.3 g/dl (32.0-37.0); MEAN CORPUSCULAR VOLUME 91.2 fl (82.0-101.0); MONOCYTE # 0.7 10^3/ul (0.3-0.9); MONOCYTES % 12.2 % (0.0-11.0); NEUTROPHIL # 3.3 10^3/ul (1.6-7.5); NEUTROPHILS % 54.8 % (39.0-77.0); PLATELET COUNT 297 10^3/UL (140-415); POTASSIUM 3.7 mmol/L (3.5-5.1); RED BLOOD COUNT 4.31 10^6/ul (4.70-6.10); SODIUM 144 mmol/L (135-144)
[2018-04-11 05:34] LABS: WHITE BLOOD COUNT 5.9 10^3/ul (4.8-10.8)
[2018-04-11] MEDS: LANSOPRAZOLE 30 MG CAP NGT (05:34)
[2018-04-11] MEDS: DOXYCYCLINE 100 MG TAB NGT ×2 (08:43→20:57)
[2018-04-11] MEDS: ASPIRIN (EC) 81 MG TAB PO (08:44)
[2018-04-11] MEDS: ENOXAPARIN 40 MG/0.4 ML SYG SC ×2 (08:45→21:23)
[2018-04-11] MEDS: ATENOLOL 50 MG TAB PO (08:46)
[2018-04-11] MEDS: MUPIROCIN 2% 22 GM OINT TOP ×2 (08:46→20:58)
[2018-04-11] MEDS: DIMETHICONE STICK TOP (08:46)
[2018-04-11] MEDS: SOD CHLORIDE 0.45% 1,000 ML IV (12:30)
[2018-04-11] MEDS: ATORVASTATIN 40 MG TAB PO (20:57)
[2018-04-11] MEDS: ATENOLOL 25 MG TAB PO (20:58)
[2018-04-11] MEDS ORDERED: HEPARIN 5,000 UNIT/0.5 ML VIAL SC (21:00)
[2018-04-12] MEDS: ARTIFICIAL TEARS 15 ML OPH BOTH EYES ×4 (00:32→17:14)
[2018-04-12] MEDS: OCULAR LUBRICANT 3.5 GM OPH OINT BOTH EYES ×4 (00:32→17:14)
[2018-04-12] MEDS: SOD CHLORIDE 0.45% 1,000 ML IV ×3 (00:33→21:09)
[2018-04-12] MEDS: PROPOFOL 100 ML IV ×7 (01:00→22:29)
[2018-04-12] MEDS: LANSOPRAZOLE 30 MG CAP NGT (05:03)
[2018-04-12 05:14] LABS: ADD MAN DIFF? NO
[2018-04-12 05:17] LABS: BASOPHILS % 0.4 % (0.0-2.0); EOSINOPHILS # 0.2 10^3/ul (0.0-0.5); EOSINOPHILS % 4.6 % (0.0-7.0); HEMATOCRIT 29.7 % (42.0-52.0); HEMOGLOBIN 9.5 g/dl (14.0-18.0); LYMPHOCYTES # 0.9 10^3/ul (0.8-2.9); LYMPHOCYTES % 18.1 % (15.0-51.0); MEAN CORPUSCULAR HEMOGLOBIN 29.6 pg (29.0-33.0); MEAN CORPUSCULAR VOLUME 92.5 fl (82.0-101.0); MEAN PLATELET VOLUME 11.2 fl (7.4-10.4); MONOCYTE # 0.5 10^3/ul (0.3-0.9); MONOCYTES % 10.1 % (0.0-11.0); NEUTROPHIL # 3.1 10^3/ul (1.6-7.5); NEUTROPHILS % 65.3 % (39.0-77.0); PLATELET COUNT 224 10^3/UL (140-415); RED BLOOD COUNT 3.21 10^6/ul (4.70-6.10); RED CELL DISTRIBUTION WIDTH 14.4 % (11.5-14.5)
[2018-04-12 05:17] LABS: WHITE BLOOD COUNT 4.8 10^3/ul (4.8-10.8)
[2018-04-12 05:39] LABS: ANION GAP 7 (8-16); BLOOD UREA NITROGEN 36 mg/dl (7-20); CALCIUM 6.2 mg/dl (8.4-10.2); CARBON DIOXIDE 22 mmol/L (21-31); CHLORIDE 105 mmol/L (97-110); GLUCOSE 95 mg/dl (70-220); SODIUM 131 mmol/L (135-144)
[2018-04-12 05:50] LABS: POTASSIUM 2.7 mmol/L (3.5-5.1)
[2018-04-12] MEDS: POTASSIUM CHLORIDE 50 ML IVPB ×5 (06:12→14:25)
[2018-04-12] MEDS: MUPIROCIN 2% 22 GM OINT TOP ×2 (08:04→21:13)
[2018-04-12] MEDS: DIMETHICONE STICK TOP (08:04)
[2018-04-12] MEDS: ASPIRIN (EC) 81 MG TAB PO (08:05)
[2018-04-12] MEDS: ATENOLOL 25 MG TAB PO ×2 (08:05→20:57)
[2018-04-12] MEDS: ENOXAPARIN 40 MG/0.4 ML SYG SC ×2 (08:09→20:58)
[2018-04-12] MEDS ORDERED: POTASSIUM CHLORIDE 50 ML IVPB (10:00)
[2018-04-12] MEDS: DOXYCYCLINE 100 MG TAB NGT (10:35)
[2018-04-12] MEDS: AMIODARONE 200 MG TAB PO ×2 (12:49→20:56)
[2018-04-12] MEDS: ATORVASTATIN 40 MG TAB PO (20:55)
[2018-04-13] MEDS: ARTIFICIAL TEARS 15 ML OPH BOTH EYES ×4 (00:31→18:39)
[2018-04-13] MEDS: OCULAR LUBRICANT 3.5 GM OPH OINT BOTH EYES ×4 (00:32→18:39)
[2018-04-13] MEDS: PROPOFOL 100 ML IV ×3 (01:28→08:50)
[2018-04-13 05:18] LABS: ADD MAN DIFF? NO
[2018-04-13 05:25] LABS: WHITE BLOOD COUNT 6.7 10^3/ul (4.8-10.8)
[2018-04-13 05:25] LABS: BASOPHILS % 0.4 % (0.0-2.0); EOSINOPHILS # 0.3 10^3/ul (0.0-0.5); EOSINOPHILS % 3.9 % (0.0-7.0); HEMATOCRIT 34.8 % (42.0-52.0); HEMOGLOBIN 11.6 g/dl (14.0-18.0); LYMPHOCYTES # 1.2 10^3/ul (0.8-2.9); LYMPHOCYTES % 17.7 % (15.0-51.0); MEAN CORPUSCULAR HGB CONC 33.3 g/dl (32.0-37.0); MEAN PLATELET VOLUME 11.7 fl (7.4-10.4); MONOCYTE # 0.5 10^3/ul (0.3-0.9); MONOCYTES % 7.3 % (0.0-11.0); NEUTROPHIL # 4.7 10^3/ul (1.6-7.5); NEUTROPHILS % 69.5 % (39.0-77.0); PLATELET COUNT 335 10^3/UL (140-415); RED BLOOD COUNT 3.74 10^6/ul (4.70-6.10); RED CELL DISTRIBUTION WIDTH 14.8 % (11.5-14.5)
[2018-04-13 05:45] LABS: ANION GAP 12 (8-16); BLOOD UREA NITROGEN 42 mg/dl (7-20); CARBON DIOXIDE 25 mmol/L (21-31); CHLORIDE 110 mmol/L (97-110); CREATININE 1.62 mg/dl (0.61-1.24); GLUCOSE 111 mg/dl (70-220); POTASSIUM 4.4 mmol/L (3.5-5.1); SODIUM 143 mmol/L (135-144)
[2018-04-13] MEDS: LANSOPRAZOLE 30 MG CAP NGT (05:56)
[2018-04-13] MEDS: AMIODARONE 200 MG TAB PO ×3 (08:36→21:13)
[2018-04-13] MEDS: ASPIRIN (EC) 81 MG TAB PO (08:36)
[2018-04-13] MEDS: ATENOLOL 25 MG TAB PO ×2 (08:36→21:12)
[2018-04-13] MEDS: MUPIROCIN 2% 22 GM OINT TOP ×2 (08:36→21:19)
[2018-04-13] MEDS: DIMETHICONE STICK TOP (08:36)
[2018-04-13] MEDS: ENOXAPARIN 40 MG/0.4 ML SYG SC ×2 (08:41→21:16)
[2018-04-13] MEDS: SOD CHLORIDE 0.45% 1,000 ML IV ×2 (08:50→23:05)
[2018-04-13] MEDS ORDERED: MIDAZOLAM DRIP 1 MG/ML in NS 100 ML IVPB (09:00)
[2018-04-13] MEDS: MIDAZOLAM (DRIP) 50 mg/50 mL 50 ML IV ×2 (09:05→22:08)
[2018-04-13] MEDS: ATORVASTATIN 40 MG TAB PO (21:13)
[2018-04-14] MEDS: ARTIFICIAL TEARS 15 ML OPH BOTH EYES ×5 (00:27→23:32)
[2018-04-14] MEDS: OCULAR LUBRICANT 3.5 GM OPH OINT BOTH EYES ×5 (00:28→23:32)
[2018-04-14 05:48] LABS: ADD MAN DIFF? NO
[2018-04-14 05:59] LABS: WHITE BLOOD COUNT 6.9 10^3/ul (4.8-10.8)
[2018-04-14 05:59] LABS: BASOPHILS % 0.4 % (0.0-2.0); EOSINOPHILS # 0.2 10^3/ul (0.0-0.5); EOSINOPHILS % 3.2 % (0.0-7.0); HEMOGLOBIN 11.1 g/dl (14.0-18.0); LYMPHOCYTES # 1.3 10^3/ul (0.8-2.9); LYMPHOCYTES % 19.1 % (15.0-51.0); MEAN CORPUSCULAR HEMOGLOBIN 30.1 pg (29.0-33.0); MEAN CORPUSCULAR HGB CONC 31.7 g/dl (32.0-37.0); MEAN CORPUSCULAR VOLUME 94.9 fl (82.0-101.0); MEAN PLATELET VOLUME 10.9 fl (7.4-10.4); MONOCYTE # 0.4 10^3/ul (0.3-0.9); MONOCYTES % 6.3 % (0.0-11.0); NEUTROPHIL # 4.8 10^3/ul (1.6-7.5); NEUTROPHILS % 70.4 % (39.0-77.0); PLATELET COUNT 383 10^3/UL (140-415); RED BLOOD COUNT 3.69 10^6/ul (4.70-6.10); RED CELL DISTRIBUTION WIDTH 14.5 % (11.5-14.5)
[2018-04-14 06:13] LABS: ANION GAP 12 (8-16); BLOOD UREA NITROGEN 37 mg/dl (7-20); CALCIUM 7.7 mg/dl (8.4-10.2); CARBON DIOXIDE 25 mmol/L (21-31); CHLORIDE 111 mmol/L (97-110); CREATININE 1.53 mg/dl (0.61-1.24); GLUCOSE 106 mg/dl (70-220); POTASSIUM 3.6 mmol/L (3.5-5.1); SODIUM 144 mmol/L (135-144)
[2018-04-14] MEDS: LANSOPRAZOLE 30 MG CAP NGT (07:18)
[2018-04-14] MEDS: hydrALAzine 20 MG INJ IV (08:19)
[2018-04-14] MEDS: ASPIRIN (EC) 81 MG TAB PO (08:20)
[2018-04-14] MEDS: ATENOLOL 25 MG TAB PO ×2 (08:20→20:49)
[2018-04-14] MEDS: AMIODARONE 200 MG TAB PO ×3 (08:25→20:48)
[2018-04-14] MEDS: ENOXAPARIN 40 MG/0.4 ML SYG SC ×2 (08:26→20:51)
[2018-04-14] MEDS: MUPIROCIN 2% 22 GM OINT TOP ×2 (08:28→21:06)
[2018-04-14] MEDS: DIMETHICONE STICK TOP (08:28)
[2018-04-14] MEDS: FENTAnyl (DRIP) 1000 mcg/100mL 100 ML IV ×2 (09:51→23:57)
[2018-04-14] MEDS: SOD CHLORIDE 0.9% 1,000 ML IV ×2 (10:03→20:54)
[2018-04-14] MEDS: METOPROLOL 5 MG INJ IV (11:54)
[2018-04-14] MEDS: PROPOFOL 100 ML IV (15:00)
[2018-04-14] MEDS: DILTIAZEM 25 MG INJ IV ×2 (15:04→23:23)
[2018-04-14] MEDS: ATORVASTATIN 40 MG TAB PO (20:48)
[2018-04-15] MEDS: PROPOFOL 100 ML IV ×2 (03:00→15:00)
[2018-04-15 05:43] LABS: ADD MAN DIFF? NO
[2018-04-15 05:59] LABS: WHITE BLOOD COUNT 7.5 10^3/ul (4.8-10.8)
[2018-04-15 05:59] LABS: BASOPHIL # 0.1 10^3/ul (0.0-0.1); BASOPHILS % 0.7 % (0.0-2.0); EOSINOPHILS # 0.3 10^3/ul (0.0-0.5); EOSINOPHILS % 4.4 % (0.0-7.0); HEMATOCRIT 35.2 % (42.0-52.0); HEMOGLOBIN 11.1 g/dl (14.0-18.0); LYMPHOCYTES # 1.3 10^3/ul (0.8-2.9); LYMPHOCYTES % 17.7 % (15.0-51.0); MEAN CORPUSCULAR HEMOGLOBIN 29.9 pg (29.0-33.0); MEAN CORPUSCULAR HGB CONC 31.5 g/dl (32.0-37.0); MEAN CORPUSCULAR VOLUME 94.9 fl (82.0-101.0); MEAN PLATELET VOLUME 11.1 fl (7.4-10.4); MONOCYTE # 0.6 10^3/ul (0.3-0.9); MONOCYTES % 8.4 % (0.0-11.0); NEUTROPHIL # 5.2 10^3/ul (1.6-7.5); NEUTROPHILS % 68.5 % (39.0-77.0); PLATELET COUNT 451 10^3/UL (140-415); RED BLOOD COUNT 3.71 10^6/ul (4.70-6.10); RED CELL DISTRIBUTION WIDTH 14.6 % (11.5-14.5)
[2018-04-15] MEDS: SOD CHLORIDE 0.9% 1,000 ML IV ×3 (06:00→18:39)
[2018-04-15] MEDS: OCULAR LUBRICANT 3.5 GM OPH OINT BOTH EYES ×4 (06:20→23:59)
[2018-04-15] MEDS: ARTIFICIAL TEARS 15 ML OPH BOTH EYES ×4 (06:20→23:58)
[2018-04-15] MEDS: LANSOPRAZOLE 30 MG CAP NGT (06:22)
[2018-04-15 06:40] LABS: ANION GAP 11 (8-16); BLOOD UREA NITROGEN 40 mg/dl (7-20); CALCIUM 8.3 mg/dl (8.4-10.2); CARBON DIOXIDE 29 mmol/L (21-31); CHLORIDE 117 mmol/L (97-110); CREATININE 1.73 mg/dl (0.61-1.24); GLUCOSE 109 mg/dl (70-220); POTASSIUM 4.9 mmol/L (3.5-5.1); SODIUM 152 mmol/L (135-144)
[2018-04-15 07:39] LABS: MAGNESIUM 2.1 mg/dl (1.7-2.5)
[2018-04-15 07:39] LABS: PHOSPHORUS 3.9 mg/dl (2.5-4.9)
[2018-04-15] MEDS: AMIODARONE 200 MG TAB PO ×3 (08:24→21:20)
[2018-04-15] MEDS: ASPIRIN (EC) 81 MG TAB PO (08:24)
[2018-04-15] MEDS: ATENOLOL 25 MG TAB PO ×2 (08:25→21:20)
[2018-04-15] MEDS: ENOXAPARIN 40 MG/0.4 ML SYG SC ×2 (08:26→21:27)
[2018-04-15] MEDS: DIMETHICONE STICK TOP (08:40)
[2018-04-15] MEDS: MUPIROCIN 2% 22 GM OINT TOP ×2 (08:40→21:39)
[2018-04-15] MEDS: DILTIAZEM 25 MG INJ IV (11:31)
[2018-04-15] MEDS: FENTAnyl (DRIP) 1000 mcg/100mL 100 ML IV (13:35)
[2018-04-15] MEDS: ATORVASTATIN 40 MG TAB PO (21:20)
[2018-04-16] MEDS: PROPOFOL 100 ML IV ×2 (03:00→15:00)
[2018-04-16] MEDS: SOD CHLORIDE 0.9% 1,000 ML IV (04:00)
[2018-04-16 05:18] LABS: ADD MAN DIFF? NO
[2018-04-16] MEDS: ARTIFICIAL TEARS 15 ML OPH BOTH EYES ×3 (05:24→18:24)
[2018-04-16] MEDS: OCULAR LUBRICANT 3.5 GM OPH OINT BOTH EYES ×3 (05:25→18:24)
[2018-04-16 05:27] LABS: BASOPHIL # 0.1 10^3/ul (0.0-0.1); BASOPHILS % 0.7 % (0.0-2.0); EOSINOPHILS # 0.4 10^3/ul (0.0-0.5); EOSINOPHILS % 4.6 % (0.0-7.0); HEMATOCRIT 35.4 % (42.0-52.0); LYMPHOCYTES # 1.1 10^3/ul (0.8-2.9); LYMPHOCYTES % 13.9 % (15.0-51.0); MEAN CORPUSCULAR HGB CONC 31.1 g/dl (32.0-37.0); MEAN CORPUSCULAR VOLUME 96.5 fl (82.0-101.0); MEAN PLATELET VOLUME 10.5 fl (7.4-10.4); MONOCYTE # 0.7 10^3/ul (0.3-0.9); MONOCYTES % 8.3 % (0.0-11.0); NEUTROPHIL # 5.8 10^3/ul (1.6-7.5); PLATELET COUNT 484 10^3/UL (140-415); RED BLOOD COUNT 3.67 10^6/ul (4.70-6.10); RED CELL DISTRIBUTION WIDTH 14.6 % (11.5-14.5)
[2018-04-16] MEDS: FENTAnyl (DRIP) 1000 mcg/100mL 100 ML IV ×2 (05:29→18:51)
[2018-04-16] MEDS: LANSOPRAZOLE 30 MG CAP NGT (05:29)
[2018-04-16 06:06] LABS: ALANINE AMINOTRANSFERASE 21 IU/L (13-69); ALBUMIN 2.7 g/dl (3.3-4.9); ALBUMIN/GLOBULIN RATIO 0.75; ALKALINE PHOSPHATASE 96 IU/L (42-121); ANION GAP 9 (8-16); ASPARTATE AMINO TRANSFERASE 23 IU/L (15-46); BILIRUBIN,INDIRECT 0.2 mg/dl (0-1.1); BILIRUBIN,TOTAL 0.2 mg/dl (0.2-1.3); CALCIUM 8.4 mg/dl (8.4-10.2); CARBON DIOXIDE 29 mmol/L (21-31); CHLORIDE 119 mmol/L (97-110); GLUCOSE 116 mg/dl (70-220); MAGNESIUM 1.9 mg/dl (1.7-2.5); PHOSPHORUS 3.7 mg/dl (2.5-4.9); POTASSIUM 4.2 mmol/L (3.5-5.1); SODIUM 153 mmol/L (135-144); TOTAL PROTEIN 6.3 g/dl (6.1-8.1)
[2018-04-16 07:03] LABS: BLOOD UREA NITROGEN 35 mg/dl (7-20)
[2018-04-16] MEDS: ATENOLOL 25 MG TAB PO ×2 (09:07→20:52)
[2018-04-16] MEDS: ASPIRIN (EC) 81 MG TAB PO (09:07)
[2018-04-16] MEDS: AMIODARONE 200 MG TAB PO ×3 (09:08→20:53)
[2018-04-16] MEDS: MUPIROCIN 2% 22 GM OINT TOP ×2 (09:08→20:58)
[2018-04-16] MEDS: DIMETHICONE STICK TOP (09:08)
[2018-04-16] MEDS: ENOXAPARIN 40 MG/0.4 ML SYG SC ×2 (09:09→20:54)
[2018-04-16] MEDS: ACETAMINOPHEN 650MG/20.3ML CUP PO (12:38)
[2018-04-16] MEDS: ATORVASTATIN 40 MG TAB PO (20:52)
[2018-04-17] MEDS: OCULAR LUBRICANT 3.5 GM OPH OINT BOTH EYES ×5 (00:39→23:08)
[2018-04-17] MEDS: ARTIFICIAL TEARS 15 ML OPH BOTH EYES ×5 (00:39→23:07)
[2018-04-17] MEDS: PROPOFOL 100 ML IV ×3 (03:00→22:30)
[2018-04-17] MEDS: FENTAnyl (DRIP) 1000 mcg/100mL 100 ML IV ×3 (05:12→23:09)
[2018-04-17 05:36] LABS: ADD MAN DIFF? NO
[2018-04-17 06:06] LABS: WHITE BLOOD COUNT 7.1 10^3/ul (4.8-10.8)
[2018-04-17 06:06] LABS: BASOPHIL # 0.1 10^3/ul (0.0-0.1); BASOPHILS % 0.9 % (0.0-2.0); EOSINOPHILS # 0.4 10^3/ul (0.0-0.5); EOSINOPHILS % 5.5 % (0.0-7.0); HEMATOCRIT 32.3 % (42.0-52.0); LYMPHOCYTES % 14.6 % (15.0-51.0); MEAN CORPUSCULAR HEMOGLOBIN 29.8 pg (29.0-33.0); MEAN CORPUSCULAR VOLUME 96.1 fl (82.0-101.0); MONOCYTE # 0.7 10^3/ul (0.3-0.9); MONOCYTES % 9.2 % (0.0-11.0); NEUTROPHIL # 4.9 10^3/ul (1.6-7.5); NEUTROPHILS % 69.5 % (39.0-77.0); PLATELET COUNT 413 10^3/UL (140-415); RED BLOOD COUNT 3.36 10^6/ul (4.70-6.10); RED CELL DISTRIBUTION WIDTH 14.6 % (11.5-14.5)
[2018-04-17] MEDS: LANSOPRAZOLE 30 MG CAP NGT (06:09)
[2018-04-17 06:41] LABS: INR 1.11; PARTIAL THROMBOPLASTIN TIME 32.6 Sec (25.0-35.0); PROTIME 14.5 Sec (11.9-14.9); PT RATIO 1.1
[2018-04-17 07:47] LABS: ANION GAP 12 (8-16); BLOOD UREA NITROGEN 34 mg/dl (7-20); CALCIUM 8.2 mg/dl (8.4-10.2); CARBON DIOXIDE 26 mmol/L (21-31); CHLORIDE 115 mmol/L (97-110); CREATININE 1.64 mg/dl (0.61-1.24); GLUCOSE 98 mg/dl (70-220); MAGNESIUM 1.8 mg/dl (1.7-2.5); PHOSPHORUS 4.2 mg/dl (2.5-4.9); POTASSIUM 4.1 mmol/L (3.5-5.1); SODIUM 149 mmol/L (135-144)
[2018-04-17] MEDS: DIMETHICONE STICK TOP (08:58)
[2018-04-17] MEDS: ASPIRIN (EC) 81 MG TAB PO (08:58)
[2018-04-17] MEDS: ATENOLOL 25 MG TAB PO ×2 (08:58→21:08)
[2018-04-17] MEDS: AMIODARONE 200 MG TAB PO ×3 (08:58→21:08)
[2018-04-17] MEDS: MUPIROCIN 2% 22 GM OINT TOP ×2 (08:59→21:13)
[2018-04-17 09:13] LABS: INR 1.11; PROTIME 14.5 Sec (11.9-14.9); PT RATIO 1.1
[2018-04-17 09:14] LABS: PARTIAL THROMBOPLASTIN TIME 32.6 Sec (25.0-35.0)
[2018-04-17 09:18] LABS: PLATELET COUNT 465 10^3/UL (140-415)
[2018-04-17] MEDS: ENOXAPARIN 40 MG/0.4 ML SYG SC ×2 (09:53→21:10)
[2018-04-17 10:51] LABS: THROMBIN TIME 19.8 SEC (13.8-19.1)
[2018-04-17] MEDS: ATORVASTATIN 40 MG TAB PO (21:07)
[2018-04-18] MEDS: ARTIFICIAL TEARS 15 ML OPH BOTH EYES ×2 (05:05→11:49)
[2018-04-18] MEDS: LANSOPRAZOLE 30 MG CAP NGT (05:05)
[2018-04-18] MEDS: OCULAR LUBRICANT 3.5 GM OPH OINT BOTH EYES ×2 (05:05→11:49)
[2018-04-18 05:06] LABS: ADD MAN DIFF? NO
[2018-04-18 05:14] LABS: WHITE BLOOD COUNT 6.5 10^3/ul (4.8-10.8)
[2018-04-18 05:14] LABS: BASOPHILS % 0.6 % (0.0-2.0); EOSINOPHILS # 0.4 10^3/ul (0.0-0.5); EOSINOPHILS % 6.4 % (0.0-7.0); HEMATOCRIT 33.1 % (42.0-52.0); HEMOGLOBIN 10.4 g/dl (14.0-18.0); LYMPHOCYTES % 15.7 % (15.0-51.0); MEAN CORPUSCULAR HEMOGLOBIN 30.1 pg (29.0-33.0); MEAN CORPUSCULAR HGB CONC 31.4 g/dl (32.0-37.0); MEAN CORPUSCULAR VOLUME 95.9 fl (82.0-101.0); MEAN PLATELET VOLUME 10.7 fl (7.4-10.4); MONOCYTE # 0.7 10^3/ul (0.3-0.9); MONOCYTES % 10.9 % (0.0-11.0); NEUTROPHIL # 4.3 10^3/ul (1.6-7.5); NEUTROPHILS % 66.1 % (39.0-77.0); PLATELET COUNT 489 10^3/UL (140-415); RED BLOOD COUNT 3.45 10^6/ul (4.70-6.10); RED CELL DISTRIBUTION WIDTH 14.3 % (11.5-14.5)
[2018-04-18 05:33] LABS: ANION GAP 11 (8-16); BLOOD UREA NITROGEN 34 mg/dl (7-20); CALCIUM 8.3 mg/dl (8.4-10.2); CARBON DIOXIDE 30 mmol/L (21-31); CHLORIDE 115 mmol/L (97-110); CREATININE 1.68 mg/dl (0.61-1.24); GLUCOSE 84 mg/dl (70-220); MAGNESIUM 1.9 mg/dl (1.7-2.5); PHOSPHORUS 4.3 mg/dl (2.5-4.9); POTASSIUM 4.6 mmol/L (3.5-5.1); SODIUM 151 mmol/L (135-144)
[2018-04-18] MEDS: FENTAnyl (DRIP) 1000 mcg/100mL 100 ML IV (07:48)
[2018-04-18] MEDS: AMIODARONE 200 MG TAB PO ×2 (08:25→13:08)
[2018-04-18] MEDS: MUPIROCIN 2% 22 GM OINT TOP (08:26)
[2018-04-18] MEDS: ASPIRIN (EC) 81 MG TAB PO (08:26)
[2018-04-18] MEDS: ATENOLOL 25 MG TAB PO (08:26)
[2018-04-18] MEDS: ENOXAPARIN 40 MG/0.4 ML SYG SC (08:33)
[2018-04-18] MEDS: DIMETHICONE STICK TOP (08:34)
[2018-04-18] MEDS ORDERED: LORAZEPAM 2 MG INJ IM (15:30)
[2018-04-18] MEDS ORDERED: LORAZEPAM 2 MG INJ IV (15:30)
[2018-04-18] MEDS ORDERED: morphine (DRIP) 100 MG/100 ML 100 ML IV (15:30)
[2018-04-18] MEDS: LORAZEPAM 2 MG INJ IV (16:07)
[2018-04-18] MEDS: HYDROmorphONE 50 MG in DEXTROSE 5% 50 ML IV (16:18)
[2018-04-18] MEDS: SCOPOLAMINE 1.5 MG PATCH TRANSDERM (17:54)
[2018-04-19] MEDS: HYDROmorphONE 50 MG in DEXTROSE 5% 50 ML IV (04:23)
[2018-04-19] MEDS: LORAZEPAM 2 MG INJ IV ×2 (11:47→20:02)
[2018-04-20] MEDS: HYDROmorphONE 50 MG in DEXTROSE 5% 50 ML IV (00:23)
[2018-04-20] MEDS: DIMETHICONE STICK TOP (14:21)
[2018-04-20] MEDS: ARTIFICIAL TEARS 15 ML OPH BOTH EYES (14:21)
== END 2018-04-20 20:58 | disposition expired | DRG 207 ==
LOC: MS2 04-19 08:55 → E/R 19:20 → ICU 21:04
PROC: 5A1955Z Respiratory Ventilation, Greater than 96 Consecutive Hours (ICD-10-PCS; principal; 2018-04-02)
PROC: 0BH17EZ Insertion of Endotracheal Airway into Trachea, Via Natural or Artificial Opening (ICD-10-PCS; 2018-04-02)
PROC: 6A4Z0ZZ Hypothermia, Single (ICD-10-PCS; 2018-04-02)
DX: J96.02 Acute respiratory failure with hypercapnia (principal); I21.4 Non-ST elevation (NSTEMI) myocardial infarction; G93.40 Encephalopathy, unspecified; I50.23 Acute on chronic systolic (congestive) heart failure; I16.1 Hypertensive emergency; N17.9 Acute kidney failure, unspecified; E87.0 Hyperosmolality and hypernatremia; G93.1 Anoxic brain damage, not elsewhere classified; I42.9 Cardiomyopathy, unspecified; I13.0 Hypertensive heart and chronic kidney disease with heart failure and stage 1 through stage 4 chronic kidney disease, or unspecified chronic kidney disease; N18.9 Chronic kidney disease, unspecified; Z51.5 Encounter for palliative care; F17.210 Nicotine dependence, cigarettes, uncomplicated; F15.90 Other stimulant use, unspecified, uncomplicated; F14.90 Cocaine use, unspecified, uncomplicated; J44.9 Chronic obstructive pulmonary disease, unspecified; E78.5 Hyperlipidemia, unspecified
CPT/HCPCS: 31500; 36415; 36569; 36600; 70450; 71045; 76775; 76937; 80048; 80053; 80202; 80307; 81001; 82150; 82540; 82550; 82553; 82803; 82962; 83605; 83690; 83735; 84100; 84155; 84300; 84484; 85025; 85049; 85378; 85384; 85610; 85670; 85730; 87040; 87070; 87081; 89220; 92950; 93005; 93308; 93970; 94002; 94003; 94770; 95819; 96374; 96375; 99291-25